=== PATIENT | male | born 1980 | race African-American/Black ===

== ENCOUNTER 2022-09-03 23:51 | Inpatient (IN) ==
[2022-09-04] MEDS ORDERED: SODIUM CHLORIDE 0.9% 1000ML 1,000 ML IV ONE ×2 (00:20→03:35)
[2022-09-04 00:53] LABS: Hematocrit (blood only) 37.4 % (42.0-52.0); Hemoglobin 12.8 g/dl (14.0-18.0); Mean Corpuscular Hemoglobin 29.6 pg (25.0-34.0); Mean Corpuscular Hgb Conc 34.2 g/dL (32.0-36.0); Mean Corpuscular Volume 86.4 fL (80.0-100.0); Mean Platelet Volume 9.7 fL (9.4-12.4); Nucleated RBC # (auto) 0.02 K/uL (0-0.12); Nucleated RBC % (auto) 1.4 %; Platelet Count 114 K/uL (130-400); RDW Coefficient of Variation 13.1 % (11.5-14.5); RDW Standard Deviation 40.9 fL (36.4-46.3); Red Blood Count 4.33 M/uL (4.70-6.10); White Blood Count 1.47 K/ul (4.8-10.8)
[2022-09-04 01:06] LABS: Alanine Aminotransferase 31 U/L (7-52); Albumin Level 3.5 gm/dl (3.4-5.0); Alkaline Phosphatase 52 U/L (34-104); Anion Gap 6 (3-11); Aspartate Aminotransferase 12 U/L (13-39); BUN Creatinine Ratio 10.6 (10-20); Bilirubin Direct 0.1 mg/dl (0-0.2); Bilirubin,Total 0.2 mg/dl (0.2-1.0); Blood Urea Nitrogen 9 mg/dl (6-23); Calcium 9.1 mg/dl (8.6-10.3); Carbon Dioxide 24 mmol/L (21-32); Chloride 105 mmol/L (98-107); Est GFR (African American) 127.2 ml/min; Est GFR (Non-African American) 109.8 ml/min; Glucose 111 mg/dl (70-99(Fasting)); Magnesium 1.5 mg/dl (1.7-2.4); Potassium 4.4 mmol/L (3.5-5.1); Sodium 135 mmol/L (136-145); Total Protein 7.2 gm/dl (6.0-8.3)
[2022-09-04 01:13] LABS: Troponin I High Sensitivity 10.3 pg/ml (0-20)
[2022-09-04] MEDS ORDERED: KETOROLAC 30 MG/ML VIAL IV ONE (01:13)
[2022-09-04] MEDS ORDERED: CIPRO 0.3%/DEXAMETHASONE 0.1% OTIC SUSP 7.5ML OT STA (01:13)
[2022-09-04] MEDS ORDERED: MAGNESIUM SULFATE / D5W 1 GM/100 ML BAG IV STA (01:25)
--- NOTE | 2022-09-04 01:28 | Emergency Department Note ---
Impression & Plan SIRS (systemic inflammatory response syndrome), Otitis externa, Acute parotitis, Neutropenia, Hypomagnesemia Admit to the [facility] ED Provider Note NAME: [id number] ATIYA AGE: 41 SEX: M ARRIVES VIA: Ambulance INFORMANT: Patient ED PROVIDER(S): Moraima Villanueva DO CHIEF COMPLAINT: Fever, right ear pain and chills PLAN: Disposition: Admit to the [facility] Condition: Guarded MEDICAL DECISION MAKING: This is a 41-year-old male patient from [facility] who presents with right ear pain, chills and fever. The patient has history of non-Hodgkin's lymphoma. Patient's symptoms started fairly suddenly around 9:30 PM this evening. Laboratory studies revealed a white count of 1.47 with an absolute neutrophil count of 1.12. Patient was also found to be hypomagnesemic. Patient received IV magnesium replacement. The source seem to be the patient's right ear. Exam was consistent with otitis externa but the pain seemed to extend anteriorly into the parotid gland. Patient was treated with IV Unasyn. CT scan revealed reactive lymphadenopathy around the parotid. There did not appear to be mastoid involvement. Patient received IV crystalloids. Both lactate and procalcitonin were normal. I discussed the case with the [place] [facility] and they will evaluate for further management. Triage Nursing notes reviewed and agree with them. External medical records reviewed from outpatient treatments. Vital Signs: reviewed and remarkable for tachycardia Differential diagnosis: Sepsis, Sirs, neutropenia, pneumonia, bacteremia, otitis externa, otitis media, mastoiditis, parotitis ER treatment provided: musician instrumental Twelve-lead EKG IV normal saline bolus IV magnesium IV Toradol IV Unasyn Ciprodex suspension eardrops IV magnesium replacement Diagnostics interpreted by me: ECG: Sinus tachycardia at a rate of [address] segment elevation or signs of ischemia Cardiac Monitoring: Sinus tachycardia at 124 Laboratory studies: See below Imaging studies: As per my independent interpretation Portable chest x-ray: No acute pulmonary infiltrates or consolidation CT scan of the soft tissue surrounding the right ear, mastoid and parotid gland: See report as per stat rad HPI: 41/M arrives for evaluation of fever, chills and right ear pain. Patient developed right ear pain and chills around 9:30 PM. Became quite weak and was noted to have a fever and tachycardia patient has a history of non-Hodgkin's lymphoma for which she receives chemotherapy every 3 weeks. PAST MEDICAL HISTORY:See Below PAST SURGICAL HISTORY:See Below FAMILY HISTORY:See Below SOCIAL H[facility] MEDICATIONS:See list ALLERGIES:None VITALS:See Below PHYSICAL EXAMINATION: HEENT: Head - normocephalic and atraumatic. Pupils are equal, round, and reactive to light. Extraocular eye muscles are intact, and sclera are anicteric. Nose - moist nasal mucosa without discharge. Mouth - moist buccal mucosa. Oropharynx is nonerythematous and there is no tonsillar exudate or edema noted. Right ear-moderate pain with any manipulation to the right pinna. The right canal was edematous. I could not see the right tympanic membrane. The left ear was normal. Neck: Supple; mild anterior cervical lymphadenopathy worse on the right than the left. Heart: Tachycardic rate and regular rhythm there is a normal S1 and S2 with no murmurs, clicks, or gallops appreciated. Lungs: Clear to auscultation bilaterally with no wheezes, rales, or rhonchi. Abdomen: Soft, completely nontender, nondistended, with good bowel sounds. There are no palpable pulsatile masses or hepatosplenomegaly. There is no guarding, rigidity, or rebound noted. Extremities: No evidence of cyanosis, clubbing, or edema. There are easily palpable peripheral pulses. Skin: warm and dry with good turgor and no rashes. ED COURSE: Times/Reassessments: 0005 the patient was evaluated in room A9. A complete history and physical was performed. A septic protocol was performed. The patient was bolused with a liter of saline. Patient was given a dose of IV Toradol for his pain. An order was placed for continuous cardiac monitoring. The patient was in a sinus tachycardia at a rate of 124. A twelve-lead EKG was obtained. A portable chest x-ray was performed. The patient went for CT scan of the face to include the right ear, parotid or mastoid. Ciprodex drops were applied to the right ear for an otitis externa. The patient was given a dose of IV Unasyn. Patient was noted to be hypomagnesemic and he was started on IV magnesium replacement. I discussed the case with the [place] [facility]ist and they will evaluate for further management. Moraima Villanueva DO Past Med/Surg History Medical History (Updated 09/04/22 @ 04:25 by Moraima Villanueva DO) Anemia Anxiety disorder, unspecified Constipation History of COVID-19 03/29/2020 History of tobacco use HTN (hypertension) Impetigo ? 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 Pneumonia due to COVID-19 virus Pulmonary embolism 03/2020 Retinal disorder Rhinitis Scabies h/o, no current infection per PA at [facility] Shortness of breath chronic per PA at [facility] Thrombocytopenia Surgical History Port-A-Cath in place (05/22/22) Insertion of Left Internal Jugular Access Port with Fluoroscopy(Left) - Tim Urban DO, FACS S/P lymph node biopsy (02/21/22) Right Axillary Lymph Node Biopsy with Frozen Section(Right) - Eben Kaufman MD, FACS Social History Smoking Status: Former smoker Tobacco Type: Cigarettes Preferred Language: [place] Communication Ability: unknown, i Controls Designer Required: No Beliefs That Will Affect Care: None Current Living Situation: Other Current Living Situation Comment: [facility]al facility Feels Safe at Home: Yes Assistive Devices: None Allergies Allergies Allergy/AdvReac Type Severity Reaction Status Date / Time No Known Allergies Allergy Verified 05/22/22 07:42 Home Meds Home Medications Medication Instructions Recorded Confirmed albuterol sulfate 90 mcg/actuation 2 puff inhalation Q6H PRN 12/04/21 05/22/22 aerosol inhaler Shortness Of Breath Or Wheezing hydroxyzine HCl 25 mg tablet 25 mg PO BID 12/04/21 05/22/22 diclofenac sodium 50 mg 50 mg PO TID 05/15/22 05/15/22 tablet,delayed release methocarbamol 750 mg tablet 750 mg PO BID 05/15/22 05/22/22 Results & Data (ED) Vital Signs Vital Signs - 24 hr 09/04/22 00:02 09/04/22 00:00 09/04/22 00:39 Temperature 37.4 C Temperature Source Oral Pulse Rate 132 H 127 H 117 H Respiratory Rate 18 25 H Respiratory Effort / Characteristics Non-Labored Spontaneous Respiratory Depth Normal Blood Pressure 132/85 153/77 H Blood Pressure Mean 100 102 Pulse Oximetry 96 96 Oxygen Delivery Method Room Air Room Air Sepsis Recent Fever Within 48 Hours Yes Sepsis New/Unexplained Change in Mental Status No Sepsis Action Taken by Nursing No Action Required 09/04/22 01:30 09/04/22 02:00 09/04/22 02:30 Temperature Temperature Source Pulse Rate 113 H 113 H 119 H Respiratory Rate 30 H 19 26 H Respiratory Effort / Characteristics Respiratory Depth Blood Pressure 145/96 H 139/82 130/85 Blood Pressure Mean 112 101 100 Pulse Oximetry 98 96 94 Oxygen Delivery Method Room Air Room Air Room Air Sepsis Recent Fever Within 48 Hours Sepsis New/Unexplained Change in Mental Status Sepsis Action Taken by Nursing Laboratory Data 09/04/22 00:36 09/04/22 00:36 Lab Results 09/04/22 09/04/22 09/04/22 Range/Units 00:36 00:36 00:36 WBC 1.47 L (4.8-10.8) K/ul RBC 4.33 L (4.70-6.10) M/uL Hgb 12.8 L (14.0-18.0) g/dl Hct 37.4 L (42.0-52.0) % MCV 86.4 (80.0-100.0) fL MCH 29.6 (25.0-34.0) pg MCHC 34.2 (32.0-36.0) g/dL RDW Std Deviation 40.9 (36.4-46.3) fL RDW Coeff of Efrain 13.1 (11.5-14.5) % Plt Count 114 L (130-400) K/uL MPV 9.7 (9.4-12.4) fL Immature Gran % (Auto) 0.7 % Neut % (Auto) 8.1 % Lymph % (Auto) 61.9 % [place] % (Auto) 25.2 % Eos % (Auto) 2.7 % Baso % (Auto) 1.4 % Neut # (Auto) 0.12 L* (1.40-6.50) K/uL Lymph # (Auto) 0.91 L (1.2-3.4) K/uL [place] # (Auto) 0.37 (0.11-0.59) K/uL Eos # (Auto) 0.04 (0-0.50) K/uL Baso # (Auto) 0.02 (0-0.2) K/uL Immature Gran # (Auto) 0.01 (0.01-0.20) K/uL Absolute Nucleated RBC 0.02 (0-0.12) K/uL Nucleated RBC % (auto) 1.4 % Sodium 135 L (136-145) mmol/L Potassium 4.4 (3.5-5.1) mmol/L Chloride 105 (98-107) mmol/L Carbon Dioxide 24 (21-32) mmol/L Anion Gap 6 (3-11) BUN 9 (6-23) mg/dl Creatinine 0.85 (0.6-1.4) mg/dl Est Cr Clr Drug Dosing Not Reportable Est GFR ( Amer) 127.2 ml/min Est GFR (Non-Af Amer) 109.8 ml/min BUN/Creatinine Ratio 10.6 (10-20) Glucose 111 H (70-99(Fasting)) mg/dl Lactate 1.1 (0.4-2.0) mmol/L Calcium 9.1 (8.6-10.3) mg/dl Magnesium 1.5 L (1.7-2.4) mg/dl Total Bilirubin 0.2 (0.2-1.0) mg/dl Direct Bilirubin 0.1 (0-0.2) mg/dl AST 12 L (13-39) U/L ALT 31 (7-52) U/L Alkaline Phosphatase 52 (34-104) U/L Troponin I High Sens 10.3 (0-20) pg/ml Total Protein 7.2 (6.0-8.3) gm/dl Albumin 3.5 (3.4-5.0) gm/dl Procalcitonin (0-0.5) ng/ml SARS-CoV-2 (PCR) (Negative) 09/04/22 09/04/22 Range/Units 00:36 01:17 WBC (4.8-10.8) K/ul RBC (4.70-6.10) M/uL Hgb (14.0-18.0) g/dl Hct (42.0-52.0) % MCV (80.0-100.0) fL MCH (25.0-34.0) pg MCHC (32.0-36.0) g/dL RDW Std Deviation (36.4-46.3) fL RDW Coeff of Efrain (11.5-14.5) % Plt Count (130-400) K/uL MPV (9.4-12.4) fL Immature Gran % (Auto) % Neut % (Auto) % Lymph % (Auto) % [place] % (Auto) % Eos % (Auto) % Baso % (Auto) % Neut # (Auto) (1.40-6.50) K/uL Lymph # (Auto) (1.2-3.4) K/uL [place] # (Auto) (0.11-0.59) K/uL Eos # (Auto) (0-0.50) K/uL Baso # (Auto) (0-0.2) K/uL Immature Gran # (Auto) (0.01-0.20) K/uL Absolute Nucleated RBC (0-0.12) K/uL Nucleated RBC % (auto) % Sodium (136-145) mmol/L Potassium (3.5-5.1) mmol/L Chloride (98-107) mmol/L Carbon Dioxide (21-32) mmol/L Anion Gap (3-11) BUN (6-23) mg/dl Creatinine (0.6-1.4) mg/dl Est Cr Clr Drug Dosing Est GFR ( Amer) ml/min Est GFR (Non-Af Amer) ml/min BUN/Creatinine Ratio (10-20) Glucose (70-99(Fasting)) mg/dl Lactate (0.4-2.0) mmol/L Calcium (8.6-10.3) mg/dl Magnesium (1.7-2.4) mg/dl Total Bilirubin (0.2-1.0) mg/dl Direct Bilirubin (0-0.2) mg/dl AST (13-39) U/L ALT (7-52) U/L Alkaline Phosphatase (34-104) U/L Troponin I High Sens (0-20) pg/ml Total Protein (6.0-8.3) gm/dl Albumin (3.4-5.0) gm/dl Procalcitonin < 0.05 (0-0.5) ng/ml SARS-CoV-2 (PCR) NEGATIVE (Negative) Administered Medications Discontinued Medications Ciprofloxacin/Dexamethasone (Cipro 0.3%/Dexamethasone 0.1% Otic Susp 7.5ml) 4 drops OT NOW STA Stop: 09/04/22 01:14 Last Admin: 09/04/22 01:31 Dose: 4 drops Documented By: MICHELLE Sodium Chloride (Nss 1000ml) 1,000 mls @ 999 mls/hr IV .Q1H1M ONE Stop: 09/04/22 01:20 Last Infusion: 09/04/22 01:56 Dose: 0 mls/hr Documented By: Admin: 09/04/22 00:55 Dose: 999 mls/hr Documented By: MICHELLE Magnesium Sulfate/Dextrose (Magnesium Sulfate / D5w) 1 gm in 100 mls @ 100 mls/hr IV NOW STA Stop: 09/04/22 02:24 Last Infusion: 09/04/22 02:54 Dose: 0 mls/hr Documented By: Admin: 09/04/22 01:54 Dose: 100 mls/hr Documented By: MICHELLE Ampicillin Sodium/Sulbactam Sodium 3,000 mg/ Sodium Chloride 108 mls @ 200 mls/hr IV NOW STA; Protocol Stop: 09/04/22 02:18 Last Infusion: 09/04/22 03:54 Dose: 0 mls/hr Documented By: Admin: 09/04/22 03:21 Dose: 200 mls/hr Documented By: MICHELLE Ioversol (Optiray 320 500ml) 100 ml IV ONCE ONE Stop: 09/04/22 02:22 Last Admin: 09/04/22 02:21 Dose: 90 ml Documented By: LEA Ketorolac Tromethamine (Ketorolac 30 Mg/Ml Vial) 30 mg IV NOW ONE Stop: 09/04/22 01:14 Last Admin: 09/04/22 01:30 Dose: 30 mg Documented By: MICHELLE Imaging Data Radiologist's Impression: Face CT 09/04/22 01:42 Exam(s): CT FACIAL With Contrast IV Amt: 90 ML OPTIRAY 320 EXAM: CT Maxillofacial With Intravenous Contrast CLINICAL HISTORY: Reason for exam: eval right ear and right parotid/mastoid. TECHNIQUE: Axial computed tomography images of the face with intravenous contrast. CTDI is 14.45 mGy and DLP is 319.09 mGy-cm. Automated exposure control was utilized for the study. A dose lowering technique was utilized adhering to the principles of ALARA. CONTRAST: Patient received 90 ML OPTIRAY 320 of IV contrast COMPARISON: No relevant prior studies available. FINDINGS: Bones/joints: No acute fracture. Soft tissues: Unremarkable. Lymph nodes: There are a few enlarged lymph nodes in the right cervical chain as well as within the right parotid gland (image 198 series 3). No focal fluid collection or definite mass is seen. Orbits: Unremarkable. Sinuses: Unremarkable. No air-fluid levels. IMPRESSION: Right cervical/parotid lymphadenopathy which could be reactive. Electronically signed by: Yuri Dickens MD 09/04/22 02:37 AM Discharge Plan Visit Data Chief Complaint: Illness Stated Complaint: Fever, Weakness, Tachycardia ED Provider: Moraima Villanueva Discharge Problem: SIRS (systemic inflammatory response syndrome), Otitis externa, Acute parotitis, Neutropenia, Hypomagnesemia Patient Disposition: Admitted As Inpatient Forms Stand Alone Forms: [facility]ly [facility], [facility] Prescriptions Prescriptions: No Action hydroxyzine HCl 25 mg tablet 25 mg PO BID albuterol sulfate 90 mcg/actuation HFA aerosol inhaler 2 puff inhalation Q6H PRN (Reason: Shortness Of Breath Or Wheezing) methocarbamol 750 mg Tablet 750 mg PO BID diclofenac sodium 50 mg Tablet,Delayed Release (Dr/Ec) 50 mg PO TID Referrals Referrals: [facility] [Primary Care Provider] -
[2022-09-04 01:36] LABS: Basophils # (auto) 0.02 K/uL (0-0.2); Basophils % (auto) 1.4 %; Eosinophils # (auto) 0.04 K/uL (0-0.50); Eosinophils % (auto) 2.7 %; Immature Granulocytes # (auto) 0.01 K/uL (0.01-0.20); Immature Granulocytes % (auto) 0.7 %; Lymphocytes # (auto) 0.91 K/uL (1.2-3.4); Lymphocytes % (auto) 61.9 %; Monocytes # (auto) 0.37 K/uL (0.11-0.59); Monocytes % (auto) 25.2 %; Neutrophils # (auto) 0.12 K/uL (1.40-6.50); Neutrophils % (auto) 8.1 %
[2022-09-04] MEDS ORDERED: AMPICILLIN/SULBACTAM SOD 3,000 MG in 0.9 % SODIUM CHLORIDE 100 ML IV STA (01:46)
[2022-09-04] MEDS ORDERED: OPTIRAY 320 500ml IV ONE (02:21)
--- NOTE | 2022-09-04 02:38 | CT Scan Report ---
Exam(s): CT FACIAL With Contrast IV Amt: 90 ML OPTIRAY 320 EXAM: CT Maxillofacial With Intravenous Contrast CLINICAL HISTORY: Reason for exam: eval right ear and right parotid/mastoid. TECHNIQUE: Axial computed tomography images of the face with intravenous contrast. CTDI is 14.45 mGy and DLP is 319.09 mGy-cm. Automated exposure control was utilized for the study. A dose lowering technique was utilized adhering to the principles of ALARA. CONTRAST: Patient received 90 ML OPTIRAY 320 of IV contrast COMPARISON: No relevant prior studies available. FINDINGS: Bones/joints: No acute fracture. Soft tissues: Unremarkable. Lymph nodes: There are a few enlarged lymph nodes in the right cervical chain as well as within the right parotid gland (image 198 series 3). No focal fluid collection or definite mass is seen. Orbits: Unremarkable. Sinuses: Unremarkable. No air-fluid levels. IMPRESSION: Right cervical/parotid lymphadenopathy which could be reactive. Electronically signed by: Yuri Dickens MD 09/04/22 02:37 AM
[2022-09-04] MEDS ORDERED: SODIUM CHLORIDE 0.9% 500 ML IV SCH (03:15)
--- NOTE | 2022-09-04 03:22 | History & Physical Report ---
Date of Service September 04, 2022 Assessment & Plan (1) Neutropenic fever: Plan: Fever at correctional facility to 100.7 per patient report; noted to be leukopenic/neutropenic with sinus tachycardia on admission, no longer febrile here BCx collected prior to receiving Unasyn CXR without evidence of pneumonia, no supplemental oxygen needs UA ordered, not yet collected at time of admission Does have right otitis externa on exam, however, given robust systemic response and immunocompromised status will cover with broad spectrum Abx at this time vanc/Zosyn (2) Sepsis: Plan: Tachycardia and leukopenia/neutropenia in immunocompromised patient, also with reported Hx of fever a few hours prior to arrival to ER Lactate 1.1 on admission Does have right otitis externa Given neutropenic status will cover empirically with vanc/Zosyn while awaiting BCx as this is relatively significant response for otitis externa alone Received 1L NSS in ER, will give another 1L NSS then resume 125cc/hr maintenance rate Med/Tele given sinus tachycardia, improved since ER arrival however not resolved at time of admission (3) Otitis externa: Plan: Right otitis externa, continue Ciprodex drops (4) Non-Hodgkin lymphoma: Plan: Undergoing active chemotherapy, follows with Dr. Taylor With neutropenia on admission, not unexpected given chemo Isolation precautions (5) Anxiety disorder, unspecified: Plan: Continue hydroxyzine medication Plan Empiric Abx, BCx monitoring, treatment of otitis externa History of Present Illness Chief Complaint: Right ear pain, fever at correctional facility Primary Care Provider: BAKARI Noble 41-year-old male past medical history significant for T-cell lymphoma undergoing current chemotherapy, anxiety presented to the ER from correctional facility for 1 day of fever and right ear pain. In the ER patient initially noted to have a heart rate in the 140s, sinus tachycardia, improved with IV fluids and pain medication. Lab studies notable for WBC count of 1.47 with a neutrophil count of 0.12, magnesium 1.5, negative procalcitonin, COVID-[address] of the face revealed right cervical/parotid lymphadenopathy, possibly reactive. No focal fluid collections or definitive masses noted. ER provider noted otitis externa on exam, given Unasyn and Ciprodex drops. Blood cultures were collected prior to antibiotics. Hospitalist service was consulted for admission for sepsis in immunocompromised patient. Patient denies chest pain, SOB, nausea, vomiting, abdominal pain, new wounds or injuries. Allergies Allergy/AdvReac Type Severity Reaction Status Date / Time No Known Allergies Allergy Verified 05/22/22 07:42 Home Medications Medication Instructions Recorded Confirmed Type albuterol sulfate 90 mcg/actuation 2 puff inhalation Q6H PRN 12/04/21 05/22/22 History aerosol inhaler Shortness Of Breath Or Wheezing hydroxyzine HCl 25 mg tablet 25 mg PO BID 12/04/21 05/22/22 History diclofenac sodium 50 mg 50 mg PO TID 05/15/22 05/15/22 History tablet,delayed release methocarbamol 750 mg tablet 750 mg PO BID 05/15/22 05/22/22 History Past Med/Surg History Medical History (Updated 09/04/22 @ 03:29 by Milly Solares DO) Anemia Anxiety disorder, unspecified Constipation History of COVID-19 03/29/2020 History of tobacco use HTN (hypertension) Impetigo ? 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 Pneumonia due to COVID-19 virus Pulmonary embolism 03/2020 Retinal disorder Rhinitis Scabies h/o, no current infection per PA at [facility] Shortness of breath chronic per PA at [facility] Thrombocytopenia Surgical History Port-A-Cath in place (05/22/22) Insertion of Left Internal Jugular Access Port with Fluoroscopy(Left) - Tim Urban DO, FACS S/P lymph node biopsy (02/21/22) Right Axillary Lymph Node Biopsy with Frozen Section(Right) - Eben Kaufman MD, FACS Social History Smoking Status: Former smoker Tobacco Type: Cigarettes Preferred Language: Mohawk Communication Ability: unknown, i Assistant Professor Sculpture Required: No Beliefs That Will Affect Care: None Current Living Situation: Other Current Living Situation Comment: Correctional facility Feels Safe at Home: Yes Assistive Devices: None Review of Systems Review of Systems: All systems reviewed & are unremarkable except as noted in Subjective Physical Exam Constitutional: WD/WN, vitals as above Respiratory: normal respiratory effort, lungs clear to auscultation Cardiovascular: RRR, no murmur, no edema Gastrointestinal (Abdomen): normal bowel sounds, soft, nontender, no hepatosplenomegaly Skin: no rashes, warm and dry Psychiatric: A+Ox3, euthymic affect Results & Data Results & Data Vital Signs (Past 12 Hours) Vital Signs Temp Pulse Resp BP Pulse Ox O2 Del Method 09/04/22 02:30 119 H 26 H 130/85 94 Room Air 09/04/22 02:00 113 H 19 139/82 96 Room Air 09/04/22 01:30 113 H 30 H 145/96 H 98 Room Air 09/04/22 00:39 117 H 25 H 153/77 H 96 Room Air 09/04/22 00:00 127 H 09/04/22 00:02 37.4 C 132 H 18 132/85 96 Room Air PG Care Time/CCT Total # of Minutes Spent Total Time Spent with Patient: Total time spent is greater than 50% in coordination of care (as documented) at patient's floor/unit and/or counseling patient: Coding Level of Care Code 02937 INT INP/OBS CARE 3/75MIN Diagnoses Neutropenic fever D70.9; R50.81 Sepsis A41.9 Otitis externa H60.90 Non-Hodgkin lymphoma C85.90 Anxiety disorder, unspecified F41.9
[2022-09-04] MEDS ORDERED: ALBUTEROL HFA 8 GM INHALER INH PRN (04:33)
[2022-09-04] MEDS ORDERED: ACETAMINOPHEN 325 MG TAB PO PRN (04:33)
[2022-09-04] MEDS ORDERED: ONDANSETRON INJ 2 MG/ML 2 ML VIAL IV PRN (04:33)
[2022-09-04] MEDS ORDERED: VANCOMYCIN CONSULT ACTIVE PRN (04:33)
[2022-09-04] MEDS ORDERED: VANCOMYCIN HCL 2,000 MG in SODIUM CHLORIDE 0.9% 500 ML IV ONE (04:33)
[2022-09-04] MEDS ORDERED: POLYETHYLENE (MIRALAX) 17 GM PACK PO PRN (04:33)
[2022-09-04] MEDS ORDERED: PIPERACILLIN/TAZOBACTAM 4.5 GM in DEXTROSE 5% 100 ML IV ONE (04:45)
[2022-09-04 05:44] LABS: Appearance Urine Clear (Clear); Bacteria Urine Automated Negative (Negative); Bilirubin Urine Negative (Negative); Blood Urine Negative (Negative); Color Urine Yellow; Glucose Urine UA Negative (Negative); Ketones Urine Negative (Negative); Leukocyte Esterase Urine Negative (Negative); Nitrite Urine Negative (Negative); RBC Urine Automated 0-4 /hpf (0-4); Specific Gravity Urine > 1.045 (1.000-1.030); Urobilinogen Urine Negative (Negative); pH Urine 8.5 (4.5-7.5)
[2022-09-04 05:57] LABS: Protein Urine Trace (Negative)
[2022-09-04] MEDS: SODIUM CHLORIDE 0.9% 1000ML 1,000 ML IV SCH ×2 (06:03→13:58)
--- NOTE | 2022-09-04 06:59 | XRay Report ---
XR chest 1V portable HISTORY: 41 years-old Male Sepsis acute sepsis COMPARISON: 05/22/2022 TECHNIQUE: AP view of the chest FINDINGS: Left pectoral acute port catheter appears unchanged. Cardiac silhouette is normal in size. No pneumot horax, pleural effusion or overt pulmonary edema. Mild subsegmental bibasilar atelectasis. Bones appe ar grossly intact. IMPRESSION: No acute process. ACT 112: Negative or not required by law. The above report was generated using voice recognition software. It may contain grammatical, syntax o r spelling errors. Electronically signed by: Hima Sesay M.D. 09/04/2022 6:58 AM
--- NOTE | 2022-09-04 07:44 | Hospitalist Progress Note ---
Date of Service September 04, 2022 Assessment & Plan (1) Neutropenic fever: Plan: [facility] 100.7 per patient report; noted to be leukopenic/neutropenic with sinus tachycardia on admission, no longer febrile here CXR w/o pneumonia UA not suggestive of infection, noting likely dehydration CT facial w/ Right cervical/parotid lymphadenopathy which could be reactive. Right otitis externa on exam, however, given robust systemic response and immunocompromised status will cover with broad spectrum Abx at this time vanc/Zosyn (given Unasyn in ER) Blood cultures obtained on admission -- ngtd, monitor in f/u Improving on exam/clinically. Labs stable. Remains afebrile at present Pain control -- added toradol 15mg q6h x 4 doses and monitor Tylenol available as needed pain/fever Pepcid IVP daily added Dr Taylor consulted for tomorrow while inpatient-- discussed today. Vitals appear stable/no need for myeloid growth factors at present if unstable, but sounds like will not be necessary. Neutropenic precautions in place Labs in AM (2) Sepsis: Plan: Tachycardia and leukopenia/neutropenia in immunocompromised patient, also with reported Hx of fever a few hours prior to arrival to ER Lactate 1.1 on admission Does have right otitis externa Given neutropenic status will cover empirically with vanc/Zosyn while awaiting BCx as this is relatively significant response for otitis externa alone Received 1L NSS in ER, will give another 1L NSS then resume 125cc/hr maintenance rate Med/Tele given sinus tachycardia, improved since ER arrival however not resolved at time of admission Will time out for 2L (tomorrow AM 09/05), improvement in PO intake (3) Otitis externa: Plan: Right otitis externa, continue Ciprodex drops Pain control (4) Non-Hodgkin lymphoma: Plan: Undergoing active chemotherapy, follows with Dr. Taylor *Chemotherapy induced pancytopenia With neutropenia on admission, not unexpected given chemo Isolation precautions consult placed for am as discussed w/ Dr Taylor (5) Anxiety disorder, unspecified: Plan: Continue hydroxyzine medication (6) SIRS (systemic inflammatory response syndrome): Plan: as above, abx/IVF (7) Neutropenia: Plan: chemotherapy induced, follows w/ dr Taylor -- consultation for AM As above Plan Empiric Abx, BCx monitoring, treatment of otitis externa Admission and Anticipated Discharge Date Admission Date: September 04, 2022 Supervising Physician Co-Signing Physician Notes The patient was not seen by me. The chart was reviewed. Case discussed with KIRSTEN Ivan. Agree with assessment and plan Subjective ADMITTED AFTER MIDNIGHT: BRIDGE NOTE Eval after lunch, doing alright, feeling better than admission. Pain creeping back up to his right ear -- not sure what he got on admission but it was effective -- discussed will review and order additional as needed. Passing gas but no BM -- uses "little red pill" when having issues -- discussed will order senna. Also encouraged guards to get up/ambulating. HRs improving, septic on admission. Dx w/ lymphoma last winter. recent chemo last week, expected neuropenic from such. Discussed I did reach out to Dr Taylor and he will see him in the morning as well while inpatient. No chest pain, but some reflux type symptoms. Will add pepcid and monitor response. Questions/concerns addressed at this time. Physical Exam Physical Exam: General: WD/WN male resting in bed, guards at bedside, NAD HEENT: head normocephalic, thick neck, +RIGHT ear tenderness to palpation to tragus/pinna, no surrounding erythema/drainage, trachea midline, +lymphadenopathy Resp: CTA, diminished in bases, no w/c, on room air CV: RRR, no significant mrg, no pitting edema GI: +BS, slight distention, nontender : no pa MSK/Neuro: no focal deficit, no slurred speech/facial droop Results & Data Results & Data Vital Signs (Past 12 Hours) Vital Signs Temp Pulse Resp BP BP Pulse Ox O2 Del Method 09/04/22 05:44 37 C 18 118/73 96 Room Air 09/04/22 05:43 104 H 09/04/22 04:00 100 H 22 132/82 95 Room Air 09/04/22 03:30 108 H 27 H 141/90 H 96 Room Air 09/04/22 03:00 113 H 26 H 130/89 95 Room Air 09/04/22 02:30 119 H 26 H 130/85 94 Room Air 09/04/22 02:00 113 H 19 139/82 96 Room Air 09/04/22 01:30 113 H 30 H 145/96 H 98 Room Air 09/04/22 00:39 117 H 25 H 153/77 H 96 Room Air 09/04/22 00:00 127 H 09/04/22 00:02 37.4 C 132 H 18 132/85 96 Room Air Laboratory Results 09/04/22 09/04/22 09/04/22 Range/Units Unknown 01:17 00:36 WBC (4.8-10.8) K/ul RBC (4.70-6.10) M/uL Hgb (14.0-18.0) g/dl Hct (42.0-52.0) % MCV (80.0-100.0) fL MCH (25.0-34.0) pg MCHC (32.0-36.0) g/dL RDW Std Deviation (36.4-46.3) fL RDW Coeff of Efrain (11.5-14.5) % Plt Count (130-400) K/uL MPV (9.4-12.4) fL Immature Gran % (Auto) % Neut % (Auto) % Lymph % (Auto) % [place] % (Auto) % Eos % (Auto) % Baso % (Auto) % Neut # (Auto) (1.40-6.50) K/uL Lymph # (Auto) (1.2-3.4) K/uL [place] # (Auto) (0.11-0.59) K/uL Eos # (Auto) (0-0.50) K/uL Baso # (Auto) (0-0.2) K/uL Immature Gran # (Auto) (0.01-0.20) K/uL Absolute Nucleated RBC (0-0.12) K/uL Nucleated RBC % (auto) % Sodium (136-145) mmol/L Potassium (3.5-5.1) mmol/L Chloride (98-107) mmol/L Carbon Dioxide (21-32) mmol/L Anion Gap (3-11) BUN (6-23) mg/dl Creatinine (0.6-1.4) mg/dl Est Cr Clr Drug Dosing Est GFR ( Amer) ml/min Est GFR (Non-Af Amer) ml/min BUN/Creatinine Ratio (10-20) Glucose (70-99(Fasting)) mg/dl Lactate (0.4-2.0) mmol/L Calcium (8.6-10.3) mg/dl Magnesium (1.7-2.4) mg/dl Total Bilirubin (0.2-1.0) mg/dl Direct Bilirubin (0-0.2) mg/dl AST (13-39) U/L ALT (7-52) U/L Alkaline Phosphatase (34-104) U/L Troponin I High Sens (0-20) pg/ml Total Protein (6.0-8.3) gm/dl Albumin (3.4-5.0) gm/dl Procalcitonin < 0.05 (0-0.5) ng/ml Urine Color Yellow Urine Appearance Clear (Clear) Urine pH 8.5 H (4.5-7.5) Ur Specific Dickey > 1.045 H (1.000-1.030) Urine Protein Trace H (Negative) Urine Glucose (UA) Negative (Negative) Urine Ketones Negative (Negative) Urine Blood Negative (Negative) Urine Nitrite Negative (Negative) Urine Bilirubin Negative (Negative) Urine Urobilinogen Negative (Negative) Ur Leukocyte Esterase Negative (Negative) Urine WBC (Auto) 1-5 (0-5) /hpf Urine RBC (Auto) 0-4 (0-4) /hpf U Hyaline Cast (Auto) 1-5 (0-5) /lpf U Epithel Cells (Auto) 10-20 H (0-5) /lpf Urine Bacteria (Auto) Negative (Negative) SARS-CoV-2 (PCR) NEGATIVE (Negative) 09/04/22 09/04/22 09/04/22 Range/Units 00:36 00:36 00:36 WBC 1.47 L (4.8-10.8) K/ul RBC 4.33 L (4.70-6.10) M/uL Hgb 12.8 L (14.0-18.0) g/dl Hct 37.4 L (42.0-52.0) % MCV 86.4 (80.0-100.0) fL MCH 29.6 (25.0-34.0) pg MCHC 34.2 (32.0-36.0) g/dL RDW Std Deviation 40.9 (36.4-46.3) fL RDW Coeff of Efrain 13.1 (11.5-14.5) % Plt Count 114 L (130-400) K/uL MPV 9.7 (9.4-12.4) fL Immature Gran % (Auto) 0.7 % Neut % (Auto) 8.1 % Lymph % (Auto) 61.9 % [place] % (Auto) 25.2 % Eos % (Auto) 2.7 % Baso % (Auto) 1.4 % Neut # (Auto) 0.12 L* (1.40-6.50) K/uL Lymph # (Auto) 0.91 L (1.2-3.4) K/uL [place] # (Auto) 0.37 (0.11-0.59) K/uL Eos # (Auto) 0.04 (0-0.50) K/uL Baso # (Auto) 0.02 (0-0.2) K/uL Immature Gran # (Auto) 0.01 (0.01-0.20) K/uL Absolute Nucleated RBC 0.02 (0-0.12) K/uL Nucleated RBC % (auto) 1.4 % Sodium 135 L (136-145) mmol/L Potassium 4.4 (3.5-5.1) mmol/L Chloride 105 (98-107) mmol/L Carbon Dioxide 24 (21-32) mmol/L Anion Gap 6 (3-11) BUN 9 (6-23) mg/dl Creatinine 0.85 (0.6-1.4) mg/dl Est Cr Clr Drug Dosing Not Reportable Est GFR ( Amer) 127.2 ml/min Est GFR (Non-Af Amer) 109.8 ml/min BUN/Creatinine Ratio 10.6 (10-20) Glucose 111 H (70-99(Fasting)) mg/dl Lactate 1.1 (0.4-2.0) mmol/L Calcium 9.1 (8.6-10.3) mg/dl Magnesium 1.5 L (1.7-2.4) mg/dl Total Bilirubin 0.2 (0.2-1.0) mg/dl Direct Bilirubin 0.1 (0-0.2) mg/dl AST 12 L (13-39) U/L ALT 31 (7-52) U/L Alkaline Phosphatase 52 (34-104) U/L Troponin I High Sens 10.3 (0-20) pg/ml Total Protein 7.2 (6.0-8.3) gm/dl Albumin 3.5 (3.4-5.0) gm/dl Procalcitonin (0-0.5) ng/ml Urine Color Urine Appearance (Clear) Urine pH (4.5-7.5) Ur Specific Dickey (1.000-1.030) Urine Protein (Negative) Urine Glucose (UA) (Negative) Urine Ketones (Negative) Urine Blood (Negative) Urine Nitrite (Negative) Urine Bilirubin (Negative) Urine Urobilinogen (Negative) Ur Leukocyte Esterase (Negative) Urine WBC (Auto) (0-5) /hpf Urine RBC (Auto) (0-4) /hpf U Hyaline Cast (Auto) (0-5) /lpf U Epithel Cells (Auto) (0-5) /lpf Urine Bacteria (Auto) (Negative) SARS-CoV-2 (PCR) (Negative) Diagnostic Findings Chest X-Ray 09/04/22 00:08 XR chest 1V portable HISTORY: 41 years-old Male Sepsis acute sepsis COMPARISON: 05/22/2022 TECHNIQUE: AP view of the chest FINDINGS: Left pectoral acute port catheter appears unchanged. Cardiac silhouette is normal in size. No pneumothorax, pleural effusion or overt pulmonary edema. Mild subsegmental bibasilar atelectasis. Bones appear grossly intact. IMPRESSION: No acute process. ACT 112: Negative or not required by law. The above report was generated using voice recognition software. It may contain grammatical, syntax or spelling errors. Electronically signed by: Hima Sesay M.D. 09/04/2022 6:[address] 09/04/22 01:42 Exam(s): CT FACIAL With Contrast IV Amt: 90 ML OPTIRAY 320 EXAM: CT Maxillofacial With Intravenous Contrast CLINICAL HISTORY: Reason for exam: eval right ear and right parotid/mastoid. TECHNIQUE: Axial computed tomography images of the face with intravenous contrast. CTDI is 14.45 mGy and DLP is 319.09 mGy-cm. Automated exposure control was utilized for the study. A dose lowering technique was utilized adhering to the principles of ALARA. CONTRAST: Patient received 90 ML OPTIRAY 320 of IV contrast COMPARISON: No relevant prior studies available. FINDINGS: Bones/joints: No acute fracture. Soft tissues: Unremarkable. Lymph nodes: There are a few enlarged lymph nodes in the right cervical chain as well as within the right parotid gland (image 198 series 3). No focal fluid collection or definite mass is seen. Orbits: Unremarkable. Sinuses: Unremarkable. No air-fluid levels. IMPRESSION: Right cervical/parotid lymphadenopathy which could be reactive. Electronically signed by: Yuri Dickens MD 09/04/22 02:37 AM PG Care Time/CCT Total # of Minutes Spent Total Time Spent with Patient: Total time spent is greater than 50% in coordination of care (as documented) at patient's floor/unit and/or counseling patient: Coding Level of Care Code None Diagnoses Neutropenic fever D70.9; R50.81 Sepsis A41.9 Otitis externa H60.90 Non-Hodgkin lymphoma C85.90 Anxiety disorder, unspecified F41.9 SIRS (systemic inflammatory response syndrome) R65.10 Neutropenia D70.1; T45.1X5A Neutropenia type: secondary to cancer chemotherapy (7) Neutropenia Neutropenia type: secondary to cancer chemotherapy Qualified Code(s): D70.1 - Agranulocytosis secondary to cancer chemotherapy; T45.1X5A - Adverse effect of antineoplastic and immunosuppressive drugs, initial encounter
[2022-09-04] MEDS: hydrOXYzine HCl 25 MG TAB PO SCH ×2 (08:22→22:27)
[2022-09-04] MEDS: CIPRO 0.3%/DEXAMETHASONE 0.1% OTIC SUSP 7.5ML OTR SCH ×2 (08:22→22:27)
[2022-09-04] MEDS: HEPARIN SOD 5,000 UNIT/0.5 ML VIAL SQ SCH ×2 (08:23→22:27)
[2022-09-04] MEDS: MAGNESIUM SULFATE / D5W 1 GM/100 ML BAG IV SCH ×2 (08:23→10:46)
--- NOTE | 2022-09-04 09:08 | Pharmacy Report ---
Pharmacy PK ABX Note - Date of Service September 04, 2022 - Assessment and Plan Assessment 41 year old M, with NHL, A-port, receiving IV Vancomycin + Zosyn for treatment of sepsis, neutropenic fever. [facility] 100.7 at [facility], no longer febrile here. WBC 1.47. Blood cultures pending. CXR without evidence of pneumonia, no supplemental oxygen needs. UA ordered, not yet collected. Otitis externa on exam, however, given robust systemic response and immunocompromised status covering with broad spectrum antibiotics empirically. Plan Vancomycin * Loading dose: 2000 mg IV x 1 * Maintenance dose: 1250 mg IV every 12 hours * Regimen is predicted to achieve target AUC/KENN of 400-600 mg/L.hr * Random level ordered for: 09/05/22 Pharmacy will continue to follow and will adjust dose/frequency as necessary. Thank you. Pharmacy has transitioned to AUC monitoring for vancomycin. AUC/KENN is the preferred PK/PD target and is associated with decreased risk of nephrotoxicity compared to traditional trough targets.
[2022-09-04] MEDS: PIPERACILLIN/TAZOBACTAM 4.5 GM in DEXTROSE 5% 100 ML IV SCH ×2 (10:46→18:09)
[2022-09-04] MEDS: VANCOMYCIN HCL 1,250 MG in SODIUM CHLORIDE 0.9% 250 ML IV SCH (12:08)
--- NOTE | 2022-09-04 12:33 | Electrocardiogram Report ---
Test Reason : Blood Pressure : / mmHG Vent. Rate : 127 BPM Atrial Rate : 127 BPM P-R Int : 130 ms QRS Dur : 078 ms QT Int : 300 ms P-R-T Axes : 021 058 -17 degrees QTc Int : 436 ms Sinus tachycardia T wave abnormality, consider inferior ischemia Abnormal ECG When compared with ECG of 17-MAY-2020 18:25, Vent. rate has increased BY 52 BPM Confirmed by Arnol Krishnan ([id number]) on 09/04/2022 12:32:31 PM Referred By: [facility] Confirmed By:Luis Eduardo Krishnan
[2022-09-04] MEDS: KETOROLAC TROMETHAMINE 15 MG/ML VIAL IV PRN ×2 (13:59→22:37)
[2022-09-04] MEDS: DOCUSATE SODIUM/SENNA 50/8.6MG TAB PO SCH (14:05)
[2022-09-04] MEDS: FAMOTIDINE 20 MG in SYRINGE 3 ML IV SCH (14:05)
[2022-09-05] MEDS: VANCOMYCIN HCL 1,250 MG in SODIUM CHLORIDE 0.9% 250 ML IV SCH (00:22)
[2022-09-05] MEDS: PIPERACILLIN/TAZOBACTAM 4.5 GM in DEXTROSE 5% 100 ML IV SCH ×3 (01:45→18:26)
[2022-09-05 06:59] LABS: Hematocrit (blood only) 33.2 % (42.0-52.0); Hemoglobin 11.3 g/dl (14.0-18.0); Mean Corpuscular Hemoglobin 29.5 pg (25.0-34.0); Mean Corpuscular Volume 86.7 fL (80.0-100.0); Mean Platelet Volume 9.9 fL (9.4-12.4); Platelet Count 156 K/uL (130-400); RDW Coefficient of Variation 13.3 % (11.5-14.5); Red Blood Count 3.83 M/uL (4.70-6.10); White Blood Count 2.37 K/ul (4.8-10.8)
[2022-09-05 07:08] LABS: BUN Creatinine Ratio 6.9 (10-20); Calcium 8.6 mg/dl (8.6-10.3); Est GFR (Non-African American) 108.7 ml/min; Magnesium 1.9 mg/dl (1.7-2.4); Potassium 4.2 mmol/L (3.5-5.1)
[2022-09-05 07:29] LABS: RBC Morphology Unremarkable
[2022-09-05 07:34] LABS: Basophils # (auto) 0.01 K/uL (0-0.2); Basophils % (auto) 0.4 %; Eosinophils # (auto) 0.05 K/uL (0-0.50); Eosinophils % (auto) 2.1 %; Immature Granulocytes # (auto) 0.01 K/uL (0.01-0.20); Immature Granulocytes % (auto) 0.4 %; Lymphocytes # (auto) 1.02 K/uL (1.2-3.4); Monocytes # (auto) 0.87 K/uL (0.11-0.59); Monocytes % (auto) 36.7 %; Neutrophils # (auto) 0.41 K/uL (1.40-6.50); Neutrophils % (auto) 17.4 %
--- NOTE | 2022-09-05 07:36 | Hospitalist Progress Note ---
Date of Service September 05, 2022 Assessment & Plan (1) Neutropenic fever: Plan: Fever at [facility] to 100.7 per patient report; noted to be leukopenic/neutropenic with sinus tachycardia on admission, no longer febrile here CXR w/o pneumonia UA not suggestive of infection, noting likely dehydration CT facial w/ Right cervical/parotid lymphadenopathy which could be reactive. Right otitis externa on exam, however, given robust systemic response and immunocompromised status will cover with broad spectrum Abx at this time vanc/Zosyn (given Unasyn in ER) Blood cultures obtained on admission -- ngtd, monitor in f/u Neutropenic precautions in place Improving on exam/clinically. Labs stable. Remains afebrile at present (low grade temp 37.6C noted) Pain control -- added toradol 15mg q6h x 4 doses (has received total 2 doses, plts improved on repeat labs) Tylenol available as needed pain/fever Pepcid daily ordered-- converted to PO for tomorrow BCx remain NGTD Vanco trough not therapeutic, pharmacy adjusting Continues on IV abx for now and waiting until blood cultures ngtd 48 hours and if stable on exam/labs in morning can consider dc on PO abx/ear drops and pain control with outpatient follow up. Monitor labs/exam on repeat but patient also hopeful for dc tomorrow if stable. Discussed plan w/ heme/onc and agreed - they will see him this afternoon (2) Sepsis: Plan: Tachycardia and leukopenia/neutropenia in immunocompromised patient, also with reported Hx of fever a few hours prior to arrival to ER Lactate 1.1 on admission Right otitis externa on exam Given neutropenic status, covering with vanc/Zosyn while awaiting BCx as this is relatively significant response for otitis externa alone Given 2L on admission, continued additional 2L overnight timed out this morning. HRs improved and stable in the 80-90s Encourage PO fluid intake Not signifiantly dehydrated on exam (3) Otitis externa: Plan: Right otitis externa, continue Ciprodex drops Pain control - continue PO option at d/c (4) Non-Hodgkin lymphoma: Plan: Undergoing active chemotherapy, follows with Dr. Taylro *Chemotherapy induced pancytopenia With neutropenia on admission, not unexpected given chemo Isolation precautions Dr Taylor consulted while inpatient-- discussed today. Vitals appear stable/no need for myeloid growth factors at present if unstable, but sounds like will not be necessary. Labs currently stable and monitoring (5) Anxiety disorder, unspecified: Plan: Continue hydroxyzine (6) SIRS (systemic inflammatory response syndrome): Plan: as above, abx/IVF (7) Neutropenia: Plan: chemotherapy induced, follows w/ dr Taylor -- consultation placed as above neutropenic precautions in place tx as outlined above Plan monitoring overnight on IV abx If stable/continued improvement on exam/pain control/HRs planning for discharge tomorrow 09/06 Admission and Anticipated Discharge Date Admission Date: September 04, 2022 Supervising Physician Co-Signing Physician Notes The patient was not seen by me. The chart was reviewed. Case discussed with KIRSTEN Ivan. Agree with assessment and plan Subjective evaluated this afternoon, doing well. pain much improved. labs stable. HRs improved and staying in 80-100s. low grade temp 37.6C but no fevers. not yet seen by Dr Taylor but will be by for consultation. senna effective for passing gas, but no BM. Guards unable to ambulate last evening but guard in room continuing shift ensured will get up/moving this afternoon. he is inquiring about discharge -- will plan for d/c tomorrow on oral abx/ear dr moriah if blood cultures remaining negative. questions/concerns addressed at this time. Physical Exam Physical Exam: General: WD/WN male resting in bed, guards at bedside, NAD HEENT: head normocephalic, thick neck, +RIGHT ear tenderness to palpation to tragus/pinna (SIGNIFICANTLY IMPROVED), no surrounding erythema/drainage, trachea midline, +slight lymphadenopathy, no abscess/fluid collection appreciated Resp: CTA, diminished in bases, no w/c, on room air CV: RRR, no significant mrg, no pitting edema GI: +BS, slight distention, nontender : no pa MSK/Neuro: no focal deficit, no slurred speech/facial droop Results & Data Results & Data Vital Signs (Past 12 Hours) Vital Signs Temp Pulse Pulse Resp BP Pulse Ox O2 Del Method 09/05/22 03:04 36.8 C 89 18 126/80 96 Room Air 09/05/22 00:44 96 H 09/04/22 22:00 37.6 C H 68 18 152/77 H 96 Room Air Laboratory Results 09/05/22 09/05/22 09/05/22 Range/Units 06:32 06:32 06:32 WBC 2.37 L (4.8-10.8) K/ul RBC 3.83 L (4.70-6.10) M/uL Hgb 11.3 L (14.0-18.0) g/dl Hct 33.2 L (42.0-52.0) % MCV 86.7 (80.0-100.0) fL MCH 29.5 (25.0-34.0) pg MCHC 34.0 (32.0-36.0) g/dL RDW Std Deviation 41.0 (36.4-46.3) fL RDW Coeff of Efrain 13.3 (11.5-14.5) % Plt Count 156 (130-400) K/uL MPV 9.9 (9.4-12.4) fL Immature Gran % (Auto) 0.4 % Neut % (Auto) 17.4 % Lymph % (Auto) 43.0 % [place] % (Auto) 36.7 % Eos % (Auto) 2.1 % Baso % (Auto) 0.4 % Neut # (Auto) 0.41 L* (1.40-6.50) K/uL Lymph # (Auto) 1.02 L (1.2-3.4) K/uL [place] # (Auto) 0.87 H (0.11-0.59) K/uL Eos # (Auto) 0.05 (0-0.50) K/uL Baso # (Auto) 0.01 (0-0.2) K/uL Immature Gran # (Auto) 0.01 (0.01-0.20) K/uL RBC Morphology Unremarkable Sodium 137 (136-145) mmol/L Potassium 4.2 (3.5-5.1) mmol/L Chloride 107 (98-107) mmol/L Carbon Dioxide 25 (21-32) mmol/L Anion Gap 5 (3-11) BUN 6 (6-23) mg/dl Creatinine 0.87 (0.6-1.4) mg/dl Est Cr Clr Drug Dosing 158.0 ml/min Est GFR ( Amer) 126.0 ml/min Est GFR (Non-Af Amer) 108.7 ml/min BUN/Creatinine Ratio 6.9 L (10-20) Glucose 90 (70-99(Fasting)) mg/dl Calcium 8.6 (8.6-10.3) mg/dl Magnesium 1.9 (1.7-2.4) mg/dl Random Vancomycin 9.7 L (10-20) mcg/ml PG Care Time/CCT Total # of Minutes Spent Total Time Spent with Patient: Total time spent is greater than 50% in coordination of care (as documented) at patient's floor/unit and/or counseling patient: Coding Level of Care Code 76006 SUB INP/OBS CARE 3/50MIN Diagnoses Neutropenic fever D70.9; R50.81 Sepsis A41.9 Otitis externa H60.90 Non-Hodgkin lymphoma C85.90 Anxiety disorder, unspecified F41.9 SIRS (systemic inflammatory response syndrome) R65.10 Neutropenia D70.1; T45.1X5A Neutropenia type: secondary to cancer chemotherapy (7) Neutropenia Neutropenia type: secondary to cancer chemotherapy Qualified Code(s): D70.1 - Agranulocytosis secondary to cancer chemotherapy; T45.1X5A - Adverse effect of antineoplastic and immunosuppressive drugs, initial encounter
[2022-09-05] MEDS: CIPRO 0.3%/DEXAMETHASONE 0.1% OTIC SUSP 7.5ML OTR SCH ×2 (08:33→20:16)
[2022-09-05] MEDS: HEPARIN SOD 5,000 UNIT/0.5 ML VIAL SQ SCH ×2 (08:33→20:16)
[2022-09-05] MEDS: hydrOXYzine HCl 25 MG TAB PO SCH ×2 (08:40→20:16)
[2022-09-05] MEDS: DOCUSATE SODIUM/SENNA 50/8.6MG TAB PO SCH (08:40)
[2022-09-05] MEDS: FAMOTIDINE 20 MG in SYRINGE 3 ML IV SCH (09:09)
--- NOTE | 2022-09-05 09:41 | Pharmacy Report ---
Pharmacy PK ABX Note - Date of Service September 05, 2022 - Assessment and Plan Assessment 41 year old M, with NHL, A-port, receiving IV Vancomycin + Zosyn (day #2) for treatment of sepsis, neutropenic fever. [facility] 100.7 at [facility], no longer febrile here. WBC 1.47, 2 today. Blood cultures - no growth after 24 hours. CXR without evidence of pneumonia, no supplemental oxygen needs. UA ordered, not yet collected. Otitis externa on exam, however, given robust systemic response and immunocompromised status covering with broad spectrum antibiotics empirically. Dayami Petersen PA-C would like at least 48 hours of antibiotics. Plan Vancomycin * Current regimen: 1250 mg IV every 12 hours * Random level obtained 09/05/22 resulted as 9.7 mcg/mL. * Change to 1500 mg IV every 12 hours. This is predicted to achieve target AUC/KENN of 400-600 mg/L.hr * Repeat random level if therapy extends beyond 48 hours. Pharmacy will continue to follow and will adjust dose/frequency as necessary. Thank you. Pharmacy has transitioned to AUC monitoring for vancomycin. AUC/KENN is the preferred PK/PD target and is associated with decreased risk of nephrotoxicity compared to traditional trough targets.
[2022-09-05] MEDS: VANCOMYCIN HCL 1,500 MG in SODIUM CHLORIDE 0.9% 500 ML IV SCH ×2 (10:31→20:17)
[2022-09-06] MEDS: PIPERACILLIN/TAZOBACTAM 4.5 GM in DEXTROSE 5% 100 ML IV SCH (02:11)
--- NOTE | 2022-09-06 05:48 | Consultation ---
Date of Consultation September 05, 2022 Assessment & Plan (1) Neutropenia: Present with neutropenia and fever but already shows strong rebound of his ANC. If that trend continues with a similarly steep slope he can probably be discharged soon but would suggest he complete a 7 to 10-day course of antibiotics prickly with some suspicion of a possible parotitis. We will check B12 and folic acid levels to make sure that there are no nutritional deficiencies that are contributing to the current picture but almost certainly it is a function of chemotherapy jean (2) Non-Hodgkin lymphoma: Patient is tolerating chemotherapy reasonably well other than this episode. We will plan on repeat CT scans after 3 cycles of treatment. Next cycle is scheduled for next week but may be better delayed for 1 additional week to allow for more complete recovery from the current infection. He has a history of being frankly hypergammaglobulinemic we will check immunoglobulin levels just to be sure he does not need those augmented to best counter his infection Plan I have submitted B12 and folic acid levels and also immunoglobulin levels and we should consider addressing any identified deficiencies Otherwise he seems to be recovering strongly and so long as he shows a good trajectory of ANC above 1000 can potentially be discharged on outpatient antibiotics. Blood cultures remain negative could consider extending his antibiotics with Augmentin orally to complete a total of 10 days. 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 This reflects pathologic adenopathy first noted in September,. Patient is currently incarcerated. Other than fatigue he has not had dramatic symptomatology but with progressive changes he started [facility] EP with his first cycle on 07/31/2022 and cycle 2 on 08/21/2022. He has not been receiving myeloid growth factors. He was admitted with neutropenic fever but currently feels well and already shows signs of count recovery. Do note that he did have a COVID19 related episode of pulmonary embolism in March, treated with defined duration Allergies Allergy/AdvReac Type Severity Reaction Status Date / Time No Known Allergies Allergy Verified 09/05/22 18:32 Home Medications Medication Instructions Recorded Confirmed Type albuterol sulfate 90 mcg/actuation 2 puff inhalation Q6H PRN 12/04/21 09/05/22 History aerosol inhaler Shortness Of Breath Or Wheezing docusate sodium 100 mg capsule 100 mg PO BID 09/05/22 09/05/22 History (Colace) etoposide 50 mg capsule 0 mg PO DAILY 09/05/22 09/05/22 History hydroxyzine pamoate 25 mg capsule 25 mg PO BID 09/05/22 09/05/22 History (Vistaril) lactulose 20 gram/30 mL oral 20 g PO BID PRN Constipation 09/05/22 09/05/22 History solution omeprazole 40 mg capsule,delayed 40 mg PO DAILY 09/05/22 09/05/22 History release prednisone 50 mg tablet 100 mg PO DAILY 09/05/22 09/05/22 History prochlorperazine maleate 10 mg 10 mg PO Q6H PRN Nausea And 09/05/22 09/05/22 His tory tablet (Compazine) Vomiting Patient History Medical History (Updated 09/04/22 @ 04:25 by Moraima Villanueva DO) Anemia Anxiety disorder, unspecified Constipation History of COVID-19 03/29/2020 History of tobacco use HTN (hypertension) Impetigo ? 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 Pneumonia due to COVID-19 virus Pulmonary embolism 03/2020 Retinal disorder Rhinitis Scabies h/o, no current infection per PA at [facility] Shortness of breath chronic per PA at [facility] Aide Thrombocytopenia Surgical History Port-A-Cath in place (05/22/22) Insertion of Left Internal Jugular Access Port with Fluoroscopy(Left) - Tim Urban DO, FACS S/P lymph node biopsy (02/21/22) Right Axillary Lymph Node Biopsy with Frozen Section(Right) - Eben Kaufman MD, FACS Social History Smoking Status: Former smoker Tobacco Type: Cigarettes Smoking End Date: February 2022; Second Hand Exposure: No; Do You Dip or Chew Tobacco: No; Hx Alcohol Use: No Hx Substance Use: No Preferred Language: Liberian Communication Ability: Effective Risk And Insurance Manager Required: No Beliefs That Will Affect Care: None Current Living Situation: Other Current Living Situation Comment: Correctional Facility - Aide Other Information That Helps Us Care for You: No Feels Safe at Home: Yes Safety Concerns: Feels Safe At This Time Assistive Devices: None Physical Exam Physical Exam: Afebrile with stable vital signs He is alert and appropriate in no distress His lungs are clear to percussion auscultation Cardiac rhythm is regular The abdomen is benign There is no unusual skin rash Neurologic exam is nonfocal Results & Data Vital Signs (Past 12 Hours) Vital Signs Temp Pulse Pulse Resp BP Pulse Ox O2 Del Method 09/06/22 04:20 36.8 C 90 18 118/74 96 Room Air 09/05/22 22:33 36.7 C 92 H 18 144/73 H 96 Room Air 09/05/22 20:30 98 H 09/05/22 20:26 36.8 C 94 H 18 127/76 98 Room Air Laboratory Results Laboratory Results - last 24 hr 09/05/22 09/05/22 09/05/22 06:32 06:32 06:32 WBC 2.37 L RBC 3.83 L Hgb 11.3 L Hct 33.2 L MCV 86.7 MCH 29.5 MCHC 34.0 RDW Std Deviation 41.0 RDW Coeff of Efrain 13.3 Plt Count 156 MPV 9.9 Immature Gran % (Auto) 0.4 Neut % (Auto) 17.4 Lymph % (Auto) 43.0 [place] % (Auto) 36.7 Eos % (Auto) 2.1 Baso % (Auto) 0.4 Neut # (Auto) 0.41 L* Lymph # (Auto) 1.02 L [place] # (Auto) 0.87 H Eos # (Auto) 0.05 Baso # (Auto) 0.01 Immature Gran # (Auto) 0.01 RBC Morphology Unremarkable Sodium 137 Potassium 4.2 Chloride 107 Carbon Dioxide 25 Anion Gap 5 BUN 6 Creatinine 0.87 Est Cr Clr Drug Dosing 158.0 Est GFR ( Amer) 126.0 Est GFR (Non-Af Amer) 108.7 BUN/Creatinine Ratio 6.9 L Glucose 90 Calcium 8.6 Magnesium 1.9 Nasal Screen MRSA (PCR) Random Vancomycin 9.7 L 09/06/22 02:16 WBC RBC Hgb Hct MCV MCH MCHC RDW Std Deviation RDW Coeff of Efrain Plt Count MPV Immature Gran % (Auto) Neut % (Auto) Lymph % (Auto) [place] % (Auto) Eos % (Auto) Baso % (Auto) Neut # (Auto) Lymph # (Auto) [place] # (Auto) Eos # (Auto) Baso # (Auto) Immature Gran # (Auto) RBC Morphology Sodium Potassium Chloride Carbon Dioxide Anion Gap BUN Creatinine Est Cr Clr Drug Dosing Est GFR ( Amer) Est GFR (Non-Af Amer) BUN/Creatinine Ratio Glucose Calcium Magnesium Nasal Screen MRSA (PCR) Negative Random Vancomycin Diagnostic Findings Chest X-Ray 09/04/22 00:08 XR chest 1V portable HISTORY: 41 years-old Male Sepsis acute sepsis COMPARISON: 05/22/2022 TECHNIQUE: AP view of the chest FINDINGS: Left pectoral acute port catheter appears unchanged. Cardiac silhouette is normal in size. No pneumothorax, pleural effusion or overt pulmonary edema. Mild subsegmental bibasilar atelectasis. Bones appear grossly intact. IMPRESSION: No acute process. ACT 112: Negative or not required by law. The above report was generated using voice recognition software. It may contain grammatical, syntax or spelling errors. Electronically signed by: Hima Sesay M.D. 09/04/2022 6:[address] 09/04/22 01:42 Exam(s): CT FACIAL With Contrast IV Amt: 90 ML OPTIRAY 320 EXAM: CT Maxillofacial With Intravenous Contrast CLINICAL HISTORY: Reason for exam: eval right ear and right parotid/mastoid. TECHNIQUE: Axial computed tomography images of the face with intravenous contrast. CTDI is 14.45 mGy and DLP is 319.09 mGy-cm. Automated exposure control was utilized for the study. A dose lowering technique was utilized adhering to the principles of ALARA. CONTRAST: Patient received 90 ML OPTIRAY 320 of IV contrast COMPARISON: No relevant prior studies available. FINDINGS: Bones/joints: No acute fracture. Soft tissues: Unremarkable. Lymph nodes: There are a few enlarged lymph nodes in the right cervical chain as well as within the right parotid gland (image 198 series 3). No focal fluid collection or definite mass is seen. Orbits: Unremarkable. Sinuses: Unremarkable. No air-fluid levels. IMPRESSION: Right cervical/parotid lymphadenopathy which could be reactive. Electronically signed by: Yuri Dickens MD 09/04/22 02:37 AM PG Care Time/CCT Total # of Minutes Spent Total Time Spent with Patient: Total time spent is greater than 50% in coordination of care (as documented) at patient's floor/unit and/or counseling patient: Coding Level of Care Code 43047 IN/OBS CONSULT LVL 2,35M Diagnoses Neutropenia D70.1; T45.1X5A Neutropenia type: secondary to cancer chemotherapy Non-Hodgkin lymphoma C85.90 Comment Note that this dictation reflects examination and assessment performed on 09/05/2022 (1) Neutropenia Neutropenia type: secondary to cancer chemotherapy Qualified Code(s): D70.1 - Agranulocytosis secondary to cancer chemotherapy; T45.1X5A - Adverse effect of antineoplastic and immunosuppressive drugs, initial encounter
[2022-09-06 07:05] LABS: Hematocrit (blood only) 32.7 % (42.0-52.0); Hemoglobin 11.5 g/dl (14.0-18.0); Mean Corpuscular Hemoglobin 29.4 pg (25.0-34.0); Mean Corpuscular Hgb Conc 35.2 g/dL (32.0-36.0); Mean Corpuscular Volume 83.6 fL (80.0-100.0); Mean Platelet Volume 9.5 fL (9.4-12.4); Platelet Count 231 K/uL (130-400); RDW Coefficient of Variation 13.4 % (11.5-14.5); Red Blood Count 3.91 M/uL (4.70-6.10); White Blood Count 3.31 K/ul (4.8-10.8)
[2022-09-06 07:31] LABS: Calcium 8.9 mg/dl (8.6-10.3); Creatinine Clr Calc Pharmacy 154.3 ml/min; Est GFR (African American) 124.8 ml/min; Est GFR (Non-African American) 107.7 ml/min; Magnesium 1.7 mg/dl (1.7-2.4)
[2022-09-06 07:41] LABS: Immunoglobulin A 284.9 mg/dl (70-400); Immunoglobulin G 1225.7 mg/dl (635-1741); Immunoglobulin M < 20.0 mg/dl (45-281)
[2022-09-06] MEDS ORDERED: MAGNESIUM SULFATE / D5W 1 GM/100 ML BAG IV ONE (07:41)
--- NOTE | 2022-09-06 07:41 | Hospitalist Progress Note ---
Date of Service September 06, 2022 Assessment & Plan Admission and Anticipated Discharge Date Admission Date: September 04, 2022 Results & Data Results & Data Vital Signs (Past 12 Hours) Vital Signs Temp Pulse Pulse Resp BP Pulse Ox O2 Del Method 09/06/22 04:20 36.8 C 90 18 118/74 96 Room Air 09/05/22 22:33 36.7 C 92 H 18 144/73 H 96 Room Air 09/05/22 20:30 98 H 09/05/22 20:26 36.8 C 94 H 18 127/76 98 Room Air Laboratory Results 09/06/22 09/06/22 09/06/22 Range/Units 06:08 06:08 06:08 WBC (4.8-10.8) K/ul RBC (4.70-6.10) M/uL Hgb (14.0-18.0) g/dl Hct (42.0-52.0) % MCV (80.0-100.0) fL MCH (25.0-34.0) pg MCHC (32.0-36.0) g/dL RDW Std Deviation (36.4-46.3) fL RDW Coeff of Efrain (11.5-14.5) % Plt Count (130-400) K/uL MPV (9.4-12.4) fL Sodium 138 (136-145) mmol/L Potassium 4.0 (3.5-5.1) mmol/L Chloride 106 (98-107) mmol/L Carbon Dioxide 25 (21-32) mmol/L Anion Gap 7 (3-11) BUN 8 (6-23) mg/dl Creatinine 0.89 (0.6-1.4) mg/dl Est Cr Clr Drug Dosing 154.3 ml/min Est GFR ( Amer) 124.8 ml/min Est GFR (Non-Af Amer) 107.7 ml/min BUN/Creatinine Ratio 9.0 L (10-20) Glucose 86 (70-99(Fasting)) mg/dl Calcium 8.9 (8.6-10.3) mg/dl Magnesium 1.7 (1.7-2.4) mg/dl Vitamin B12 Pending Folate Pending Nasal Screen MRSA (PCR) (Negative) IgG Pending IgA Pending IgM Pending 09/06/22 09/06/22 Range/Units 06:08 02:16 WBC 3.31 L (4.8-10.8) K/ul RBC 3.91 L (4.70-6.10) M/uL Hgb 11.5 L (14.0-18.0) g/dl Hct 32.7 L (42.0-52.0) % MCV 83.6 (80.0-100.0) fL MCH 29.4 (25.0-34.0) pg MCHC 35.2 (32.0-36.0) g/dL RDW Std Deviation 40.0 (36.4-46.3) fL RDW Coeff of Efrain 13.4 (11.5-14.5) % Plt Count 231 (130-400) K/uL MPV 9.5 (9.4-12.4) fL Sodium (136-145) mmol/L Potassium (3.5-5.1) mmol/L Chloride (98-107) mmol/L Carbon Dioxide (21-32) mmol/L Anion Gap (3-11) BUN (6-23) mg/dl Creatinine (0.6-1.4) mg/dl Est Cr Clr Drug Dosing ml/min Est GFR ( Amer) ml/min Est GFR (Non-Af Amer) ml/min BUN/Creatinine Ratio (10-20) Glucose (70-99(Fasting)) mg/dl Calcium (8.6-10.3) mg/dl Magnesium (1.7-2.4) mg/dl Vitamin B12 Folate Nasal Screen MRSA (PCR) Negative (Negative) IgG IgA IgM PG Care Time/CCT Total # of Minutes Spent Total Time Spent with Patient: Total time spent is greater than 50% in coordination of care (as documented) at patient's floor/unit and/or counseling patient: Coding Diagnoses
[2022-09-06 07:43] LABS: Vitamin B12 560 pg/ml (180-914)
[2022-09-06 07:51] LABS: ALC (manual) 0.93 K/uL (1.2-3.4); ANC (manual) 1.32 K/uL (1.4-6.5); Basophils # (manual) 0.03 K/uL (0-0.2); Basophils % (manual) 1 %; Blast # (manual) 0.03 K/uL (0-0); Blast Cells % (manual) 1 %; Eosinophils % (manual) 3 %; Lymphocytes # (manual) 0.93 K/uL (1.2-3.4); Lymphocytes % (manual) 28 %; Monocytes # (manual) 0.93 K/uL (0.11-0.59); Monocytes % (manual) 28 %; Neutrophils # (manual) 1.32 K/uL (1.40-6.50); Neutrophils % (manual) 40 %; RBC Morphology Unremarkable
[2022-09-06 07:57] VITALS: O2SAT 97
[2022-09-06] MEDS ORDERED: FAMOTIDINE 20 MG TAB PO SCH (09:00)
[2022-09-06] MEDS: VANCOMYCIN HCL 1,500 MG in SODIUM CHLORIDE 0.9% 500 ML IV SCH (09:11)
[2022-09-06] MEDS: CIPRO 0.3%/DEXAMETHASONE 0.1% OTIC SUSP 7.5ML OTR SCH (09:18)
[2022-09-06] MEDS: HEPARIN SOD 5,000 UNIT/0.5 ML VIAL SQ SCH (09:18)
[2022-09-06] MEDS: DOCUSATE SODIUM/SENNA 50/8.6MG TAB PO SCH (09:21)
[2022-09-06] MEDS: hydrOXYzine HCl 25 MG TAB PO SCH (09:21)
[2022-09-06] MEDS ORDERED: AMOXICILLIN/CLAVULANATE 875 MG TAB PO SCH (10:15)
[2022-09-06 11:59] VITALS: TEMP 98.2
--- NOTE | 2022-09-06 12:04 | Discharge Summary ---
Date of Service September 06, 2022 Admission HPI Per Admitting Provider 41-year-old male past medical history significant for T-cell lymphoma undergoing current chemotherapy, anxiety presented to the ER from correctional facility for 1 day of fever and right ear pain. In the ER patient initially noted to have a heart rate in the 140s, sinus tachycardia, improved with IV fluids and pain medication. Lab studies notable for WBC count of 1.47 with a neutrophil count of 0.12, magnesium 1.5, negative procalcitonin, COVID-[address] of the face revealed right cervical/parotid lymphadenopathy, possibly reactive. No focal fluid collections or definitive masses noted. ER provider noted otitis externa on exam, given Unasyn and Ciprodex drops. Blood cultures were collected prior to antibiotics. Hospitalist service was consulted for admission for sepsis in immunocompromised patient. Patient denies chest pain, SOB, nausea, vomiting, abdominal pain, new wounds or injuries. Admission Exam Per Admitting Provider Constitutional: WD/WN, vitals as above Respiratory: normal respiratory effort, lungs clear to auscultation Cardiovascular: RRR, no murmur, no edema Gastrointestinal (Abdomen): normal bowel sounds, soft, nontender, no hepatosplenomegaly Skin: no rashes, warm and dry Psychiatric: A+Ox3, euthymic affect Principal Diagnosis Sepsis, Right Otitis Externa, Neutropenic Fever Discharge Exam General: WD/WN male resting in bed, guards at bedside, NAD HEENT: head normocephalic, thick neck, +RIGHT ear tenderness to palpation to tragus/pinna (SIGNIFICANTLY IMPROVED), no surrounding erythema/drainage, trachea midline, +slight lymphadenopathy, no abscess/fluid collection appreciated Chest: L port present, no erythema/redness/drainage or sign of infection, no tenderness Resp: CTA, diminished in bases, no w/c, on room air CV: RRR, no significant mrg, no pitting edema GI: +BS, slight distention, nontender : no pa MSK/Neuro: no focal deficit, no slurred speech/facial droop Discharge Data Allergies Allergy/AdvReac Type Severity Reaction Status Date / Time No Known Allergies Allergy Verified 09/05/22 18:32 Consultations 09/04/22 03:00 ED Decision to Admit Stat 09/04/22 12:29 Consult Hematology Routine Ordered Studies Chest X-Ray 09/04/22 00:08 XR chest 1V portable HISTORY: 41 years-old Male Sepsis acute sepsis COMPARISON: 05/22/2022 TECHNIQUE: AP view of the chest FINDINGS: Left pectoral acute port catheter appears unchanged. Cardiac silhouette is normal in size. No pneumothorax, pleural effusion or overt pulmonary edema. Mild subsegmental bibasilar atelectasis. Bones appear grossly intact. IMPRESSION: No acute process. ACT 112: Negative or not required by law. The above report was generated using voice recognition software. It may contain grammatical, syntax or spelling errors. Electronically signed by: Hima Sesay M.D. 09/04/2022 6:[address] 09/04/22 01:42 Exam(s): CT FACIAL With Contrast IV Amt: 90 ML OPTIRAY 320 EXAM: CT Maxillofacial With Intravenous Contrast CLINICAL HISTORY: Reason for exam: eval right ear and right parotid/mastoid. TECHNIQUE: Axial computed tomography images of the face with intravenous contrast. CTDI is 14.45 mGy and DLP is 319.09 mGy-cm. Automated exposure control was utilized for the study. A dose lowering technique was utilized adhering to the principles of ALARA. CONTRAST: Patient received 90 ML OPTIRAY 320 of IV contrast COMPARISON: No relevant prior studies available. FINDINGS: Bones/joints: No acute fracture. Soft tissues: Unremarkable. Lymph nodes: There are a few enlarged lymph nodes in the right cervical chain as well as within the right parotid gland (image 198 series 3). No focal fluid collection or definite mass is seen. Orbits: Unremarkable. Sinuses: Unremarkable. No air-fluid levels. IMPRESSION: Right cervical/parotid lymphadenopathy which could be reactive. Electronically signed by: Yuri Dickens MD 09/04/22 02:37 AM Hospital Course (1) Neutropenic fever: Fever at correctional facility to 100.7 per patient report; noted to be leukopenic/neutropenic with sinus tachycardia on admission, no longer febrile here CXR w/o pneumonia UA not suggestive of infection, noting likely dehydration CT facial w/ Right cervical/parotid lymphadenopathy which could be reactive. Right otitis externa on exam, however, given robust systemic response and immunocompromised status, covered with broad spectrum Abx with Vanc/Zosyn (given Unasyn in ER). Ciprodex drops Blood cultures obtained on admission -- ngtd at 48 hours. No fevers Neutropenic precautions in place -- heme/onc consulted -- suspect picture c/w function of chemotherapy jean w/ neuropenia/recent chemotherapy -- will have outpt f/u, possible delay next chemo by a week (see consultation in record) IVF replacement for dehydration/tachycardia/sepsis with improvement in rates and remained <100 past 24-48 hours Supportive care, pain control/antiemetics prn Neutrophil count improved, >1k, ok from heme/onc for discharge Significant improvement 09/05 and wanting to dc but discussed monitoring bcx x 48 hours prior to discharge. Continued improvement on exam 09/06 and blood cultures remained negative and transitioned to Augmentin and plan to complete 10 day total course along w/ Ciprodex drops. Outpt f/u Dr Taylor. Report called provider-provider to [facility] to ensure no issues w/ obtaining abx. Patient reported tylenol effective for pain control and can continue that at discharge (2) Sepsis: Tachycardia and leukopenia/neutropenia in immunocompromised patient, also with reported Hx of fever a few hours prior to arrival to ER Lactate 1.1 on admission Right otitis externa on exam -- abx in IV/drops as above Transitioned to augmentin to cover for above, ciprodex for RIGHT ear Sepsis resolved w/ treatment (3) Otitis externa: Right otitis externa, continued Ciprodex drops and complete 7 day course at discharge Pain control -- given toradol x 2 doses (one on admission) and now controlled w/ tylenol alone Denied need for additional pain meds at dc (4) Non-Hodgkin lymphoma: Undergoing active chemotherapy, follows with Dr. Taylor *Chemotherapy induced pancytopenia -- With neutropenia on admission, not unexpected given chemo Isolation precautions while inpatient, neutropenia improving, >1k IgM low but discussed w/ Dr Taylor, given IgG ok, not to give any IVIG B12/folate not deficient F/u Dr Taylor at discharge -- timing for next chemo TBD in f/u (5) Anxiety disorder, unspecified: Continued hydroxyzine (6) SIRS (systemic inflammatory response syndrome): as above, abx, IVF capped and tolerating PO w/o further tachycardia or fevers (7) Neutropenia: chemotherapy induced, follows w/ dr Taylor -- consultation placed as above neutropenic precautions in place tx as outlined above, improved on repeat labs enough to go home outpt f/u Plan d/c on Augmentin PO BID x total 10 day course, ciprodex to complete 7 day course Outpt f/u Dr Taylor as well as medical provider at the [facility] Report/sign out given to [facility] prior to discharge for any questions/concerns Total Time Total Time Spent Total Time Spent (In Minutes): 45 Discharge Plan Discharge Items Patient Disposition: [facility] Reason For Visit: NEUTROPENIC FEVER Discharge Diagnosis: Neutropenic Fever, Sepsis, Otitis Externa Goals: You have been hospitalized for an acute medical problem. During your stay at [facility], we have made an effort to correct the problem that brought you to the hospital while keeping you as comfortable as possible. Medications were used to bring your condition under control and your discharge instructions will include directions for any medications you should take after leaving the hospital. Please make sure you see your Primary Care Provider as part of your follow up plan. Activity: As commented below Non-emergency contact: Primary Care Provider and Oncologist Call non-emergency contact if: you have any medication questions, your symptoms worsen, your pain is not controlled and you have a fever Follow-up/Referrals: Pedro Luis Taylor MD [Physician] - (within the week) Aide VILLEGAS [Primary Care Provider] - Diet: Regular Addtl Attending Provider Instructions: You have been hospitalized for sepsis. Source is likely related to your right ear infection and you have been on IV antibiotics for broad coverage and your blood cultures have been negative and I discussed case with Dr Taylor and we have decided to continue antibiotics orally in the form Augmentin one tablet by mouth twice daily for another seven days after your dose this evening, and Ciprodex drops to the right ear twice daily for a total of seven days (another four and a half days). You will need to follow up with Dr Taylor after discharge for repeat labs to monitor your blood counts as well as continued chemotherapy, which may be delayed a week depending on follow up. Please return to the ER with any repeat fevers, worsening pain, shortness of breath, or for any other symptoms concerning for you. It has been a pleasure being a part of the medical team providing for you while you have been in the hospital. Take care! Pending Studies at Discharge: Yes Studies:: Blood cultures -- no growth to date Stand-Alone Forms: [facility] Skilled Items Patient informed of condition?: Yes Discharge Level of Care: Other Communicable Disease: No Discharge Prognosis: Improving Lines: None Urinary Catheter: No Medications and DC Order Prescriptions: New ciprofloxacin-dexamethasone 0.3-0.1 % Drops,Suspension 4 drp OTR BID 5 Days Qty: 7.5 0RF amoxicillin-pot clavulanate 875-125 mg Tablet 1 tab PO BIDM 8 Days Qty: 15 0RF acetaminophen 500 mg tablet 1,000 mg PO Q8H PRN (Reason: fever or pain) Qty: 7 0RF Continued albuterol sulfate 90 mcg/actuation HFA aerosol inhaler 2 puff inhalation Q6H PRN (Reason: Shortness Of Breath Or Wheezing) prochlorperazine maleate [Compazine] 10 mg Tablet 10 mg PO Q6H PRN (Reason: Nausea And Vomiting) omeprazole 40 mg Capsule,Delayed Release(Dr/Ec) 40 mg PO DAILY prednisone 50 mg Tablet 100 mg PO DAILY docusate sodium [Colace] 100 mg Capsule 100 mg PO BID etoposide 50 mg Capsule 0 mg PO DAILY Rx Instructions: Patient only takes this medication 1-2 days AFTER chemotherapy until told to stop. Medication is dispensed from cancer center. hydroxyzine pamoate [Vistaril] 25 mg Capsule 25 mg PO BID lactulose 20 gram/30 mL Solution 20 g PO BID PRN (Reason: Constipation) Discharge Orders: Discharge Order (Routine); Ordered 09/06/22 Ordered By: Dayami Petersen Admission Data Admit Date/Time: 09/04/22 03:32 Attending Provider: Kojo Bettencourt Admit Provider: Milly Solares Primary Care Provider: Aide VILLEGAS Other Providers: Milly Solares ; Pedro Luis Taylor Other Interventions: Discharge Summary Assessment (RN) Last Done: 09/06/22 12:46 Supervising Physician Co-Signing Physician Notes The patient was seen by me. The chart was reviewed. Case discussed with KIRSTEN Ivan. Agree with assessment and plan. [facility] will [facility] today, September 06 Coding Level of Care Code 10025 INP/OBS DISCH >30 MIN Diagnoses Neutropenic fever D70.9; R50.81 Sepsis A41.9 Otitis externa H60.90 Non-Hodgkin lymphoma C85.90 Anxiety disorder, unspecified F41.9 SIRS (systemic inflammatory response syndrome) R65.10 Neutropenia D70.1; T45.1X5A Neutropenia type: secondary to cancer chemotherapy
[2022-09-06 12:48] VITALS: BP 126/84; PULSE 92
== END 2022-09-06 15:00 | DRG 871 ==
LOC: ED 23:51 → SUATTDRO 09-04 03:32 → 2N 09-04 03:32

== ENCOUNTER 2022-10-22 10:55 | Inpatient (IN) ==
--- NOTE | 2022-10-22 12:07 | XRay Report ---
XR chest 1V not portable HISTORY: 41 years-old Male Sepsis acute sepsis COMPARISON: 09/04/2022 TECHNIQUE: PA view of the chest FINDINGS: Cardiomediastinal and hilar silhouettes are unchanged. Left IJ [id number] catheter. No pneumothora x, pleural effusion, airspace consolidation or pulmonary edema. Bones appear grossly intact. IMPRESSION: No acute process. ACT 112: Negative or not required by law. The above report was generated using voice recognition software. It may contain grammatical, syntax o r spelling errors. Electronically signed by: Hima Sesay M.D. 10/22/2022 12:06 PM
[2022-10-22 12:51] LABS: Albumin Globulin Ratio 1.3 (0.9-2); Albumin Level 3.9 gm/dl (3.4-5.0); BUN Creatinine Ratio 17.6 (10-20); Calcium 9.1 mg/dl (8.6-10.3); Creatinine Clr Calc Pharmacy 194.9 ml/min; Est GFR (African American) 139.4 ml/min; Est GFR (Non-African American) 120.3 ml/min; Globulin 3.1 gm/dl (2.5-4.0); Magnesium 1.9 mg/dl (1.7-2.4); Potassium 4.1 mmol/L (3.5-5.1)
[2022-10-22 13:07] LABS: Partial Thromboplastin Time 29.2 Seconds (21.0-31.0); Prothrombin Time 10.9 Seconds (9.0-12.0)
[2022-10-22 13:10] LABS: Procalcitonin 0.16 ng/ml (0-0.5)
[2022-10-22 13:12] LABS: Hematocrit (blood only) 35.3 % (42.0-52.0); Mean Corpuscular Hemoglobin 30.5 pg (25.0-34.0); Mean Corpuscular Volume 89.8 fL (80.0-100.0); Mean Platelet Volume 10.9 fL (9.4-12.4); Platelet Count 58 K/uL (130-400); RDW Coefficient of Variation 15.3 % (11.5-14.5); RDW Standard Deviation 50.4 fL (36.4-46.3); Red Blood Count 3.93 M/uL (4.70-6.10)
[2022-10-22 13:14] LABS: White Blood Count 0.89 K/ul (4.8-10.8)
[2022-10-22 13:16] LABS: Lyme Ab IgG w/WB Rflx Negative (Negative); Lyme Ab IgM w/WB Rflx Negative (Negative)
--- NOTE | 2022-10-22 14:20 | Emergency Department Note ---
Impression & Plan Neutropenia, Anemia, Thrombocytopenia, Fever, Lymphoma, Pharyngitis ED Provider Note NAME: [id number] ATIYA AGE: 41 SEX: M : 1980 ARRIVES VIA: Walk-In INFORMANT: [Patient] ED PROVIDER(S): [Yogi Rodriguez MD] CHIEF COMPLAINT: Fever HISTORY OF PRESENT ILLNESS: The patient is a 41-year-old male with lymphoma. He is on chemotherapy. His draw bench operator/oncologist is Dr. Taylor. The patient did have infusion chemotherapy 8 days ago. 3 days in a row after, he received oral chemotherapy. He is not certain he was supposed to receive 3 days, he thinks just 2 days. He may have received an extra dose. The patient has a sore throat, he has had this for several days. No cough, no shortness of breath or abdominal pain. He has noticed some diarrhea which has been nonbloody. He has not had a rash. No sick contacts. He is currently staying at the [facility]. Patient has felt sweaty and has had a low-grade fever. Because of the neutropenia, he was sent for evaluation. PMHx/PSHx: See Below SOCIAL HISTORY: See Below. PHYSICAL EXAM: GENERAL: Patient is in no acute distress. HEENT: No acute trauma, normocephalic atraumatic, mucous membranes moist, no nasal congestion. Bilateral throat erythema noted, no evidence for peritonsillar abscess. NECK: No stridor, no adenopathy, no meningismus, trachea is midline. LUNGS: Clear to auscultation bilaterally, no wheeze, no rhonchi, breath sounds equal. HEART: Without murmurs gallops or rubs, regular rate and rhythm. ABDOMEN: Soft, nontender, bowel sounds positive, no peritonitis. EXTREMITIES: No cyanosis or edema, full range of motion of all the joints without pain or difficulty, no signs for acute trauma. NEUROLOGIC: Oriented x 3, no acute motor or sensory deficits, no focal weakness. SKIN: No rash, no jaundice, no diaphoresis. DIFFERENTIAL DIAGNOSIS: Bacteremia or sepsis, strep pharyngitis, viral pharyngitis, COVID-19, influenza, UTI, cellulitis, electrolyte imbalance, chemotherapy reaction, among others. EMERGENCY DEPARTMENT COURSE/PROCEDURES: Prior/Outside records reviewed: Most recent discharge summary. ECG per my interpretation: Indication was possible sepsis. The ECG shows a sinus tachycardia with a rate of 107. There is a potential old septal infarct. There is no ST elevation, no PVCs. The QTc is 429. Continuous Cardiac Monitoring per my interpretation: An order was placed for continuous cardiac monitoring. The monitor shows a rate of 98 with normal sinus rhythm. Critical Care Note: I have personally spent 53 minutes of critical care time in the direct management of this patient. This includes bedside care, interpretation of diagnostic studies, and testing, discussion with consultants, patient, and family members, and other required patient management activities. This 53 minutes is in excess of all separately billable procedures. MEDICAL DECISION MAKING: The patient is neutropenic with a white blood cell count of 0.89. His hemoglobin is low at 12. He does have a low platelet count at 58. No coagulop athy. No renal failure or significant electrolyte abnormality. Lactic acid level is not elevated making severe sepsis less likely. There was no concerning liver enzyme elevation. Procalcitonin level was not not elevated making serious bacterial infection less likely. Urinalysis showed no findings of infection. Respiratory bio fire was completely negative. Lyme disease testing was negative. Strep testing was negative. Chest film per my review did not show mediastinal widening, pneumonia or pneumothorax. On exam, the patient was nontoxic, he was resting comfortably on the stretcher. The patient was given IV cefepime as empiric antibiotic coverage. He was given IV saline for hydration. The source for his complaints and presumed fever are unclear. The patient does have a pharyngitis though and certainly, he may have a viral illness responsible for his complaints. Given the profound neutropenia, given the accidental additional dose of oral chemotherapy administered, given his current incarceration, a hospital stay was felt warranted. I did speak with Dr. Andrews of hematology/oncology. He confirmed the need for a hospital stay. I did speak with the patient and the guards. [facility] The on-call hospitalist was consulted. Case management has been involved. DISPOSITION: Patient's presentation and findings warrant a hospital stay. Past Med/Surg History Medical History Anemia Anxiety disorder, unspecified Constipation History of COVID-19 03/29/2020 History of tobacco use HTN (hypertension) Impetigo ? 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 Pneumonia due to COVID-19 virus Pulmonary embolism 03/2020 Retinal disorder Rhinitis Scabies h/o, no current infection per PA at [facility] Shortness of breath chronic per PA at [facility] SIRS (systemic inflammatory response syndrome) Thrombocytopenia Surgical History Port-A-Cath in place (05/22/22) Insertion of Left Internal Jugular Access Port with Fluoroscopy(Left) - Tim Urban DO, FACS S/P lymph node biopsy (02/21/22) Right Axillary Lymph Node Biopsy with Frozen Section(Right) - Eben Kaufman MD, FACS Social History Smoking Status: Never smoker Tobacco Type: Cigarettes Second Hand Exposure: No; Do You Dip or Chew Tobacco: No; Hx Alcohol Use: No Hx Substance Use: No Preferred Language: Luxembourgish Communication Ability: Effective Real Estate Recruiter Required: No Beliefs That Will Affect Care: None Current Living Situation: Other Current Living Situation Comment: [facility] - Aide Feels Safe at Home: Yes Assistive Devices: None Allergies Allergies Allergy/AdvReac Type Severity Reaction Status Date / Time No Known Allergies Allergy Verified 10/22/22 16:15 Home Meds Home Medications Medication Instructions Recorded Confirmed albuterol sulfate 90 mcg/actuation 2 puff inhalation QID PRN 10/22/22 10/22/22 aerosol inhaler Shortness Of Breath Or Wheezing heparin lock flush (porcine) 100 0 unit IV MO 10/22/22 10/22/22 unit/mL intravenous solution hydroxyzine pamoate 25 mg capsule 25 mg PO BID 10/22/22 10/22/22 omeprazole 40 mg capsule,delayed 40 mg PO DAILY 10/22/22 10/22/22 release Results & Data (ED) Vital Signs Vital Signs - 24 hr 10/22/22 10:59 Temperature 36.8 C Temperature Source Oral Pulse Rate 98 H Respiratory Rate 18 Respiratory Effort / Characteristics Non-Labored Spontaneous Respiratory Depth Normal Respiratory Pattern Regular Blood Pressure 134/80 Blood Pressure Mean 98 Pulse Oximetry 97 Oxygen Delivery Method Room Air Sepsis Recent Fever Within 48 Hours Yes Sepsis New/Unexplained Change in Mental Status No Sepsis Action Taken by Nursing No Action Required Home Medications Current Medication List: was personally reviewed by me Laboratory Data Attestation: I reviewed the patient's lab results. 10/22/22 12:00 10/22/22 12:00 Lab Results 10/22/22 10/22/22 10/22/22 Range/Units 12:00 12:00 12:00 WBC 0.89 L* (4.8-10.8) K/ul RBC 3.93 L (4.70-6.10) M/uL Hgb 12.0 L (14.0-18.0) g/dl Hct 35.3 L (42.0-52.0) % MCV 89.8 (80.0-100.0) fL MCH 30.5 (25.0-34.0) pg MCHC 34.0 (32.0-36.0) g/dL RDW Std Deviation 50.4 H (36.4-46.3) fL RDW Coeff of Efrain 15.3 H (11.5-14.5) % Plt Count 58 L (130-400) K/uL MPV 10.9 (9.4-12.4) fL Immature Gran % (Auto) Cancelled Neut % (Auto) Cancelled Lymph % (Auto) Cancelled Meigs % (Auto) Cancelled Eos % (Auto) Cancelled Baso % (Auto) Cancelled Neut # (Auto) Cancelled Lymph # (Auto) Cancelled Meigs # (Auto) Cancelled Eos # (Auto) Cancelled Baso # (Auto) Cancelled Immature Gran # (Auto) Cancelled Neutrophils % (Manual) Cancelled Band Neutrophils % Cancelled Lymphocytes % (Manual) Cancelled Prolymphocyte % Cancelled Reactive Lymphs % (Man) Cancelled Monocytes % (Manual) Cancelled Eosinophils % (Manual) Cancelled Basophils % (Manual) Cancelled Metamyelocytes % (Man) Cancelled Myelocytes % (Man) Cancelled Promyelocytes % (Man) Cancelled Blast Cells % (Manual) Cancelled Plasma Cell % (Manual) Cancelled Other Cells % Cancelled Nucleated RBC % Cancelled Neutrophils # (Manual) Cancelled Band Neutrophils # Cancelled Total Absolute Neuts Cancelled Lymphocytes # (Manual) Cancelled Prolymphocyte # Cancelled Reactive Lymphs # Cancelled Total Abs Lymphocytes Cancelled Monocytes # (Manual) Cancelled Eosinophils # (Manual) Cancelled Basophils # (Manual) Cancelled Metamyelocytes # (Man) Cancelled Myelocytes # (Manual) Cancelled Promyelocytes # (Man) Cancelled Blast Cells # (Man) Cancelled Plasma Cell # (Manual) Cancelled Other Cells # Cancelled Nucleated RBCs # (Man) Cancelled Hypersegmented Neuts Cancelled Hyposegmented Neuts Cancelled Hypogranular Neuts Cancelled Large Granular Lymphs Cancelled # Lrg Granular Lymphs Cancelled Hairy Cells Cancelled Smudge Cells Cancelled Toxic Granulation Cancelled Toxic Vacuolation Cancelled Dohle Bodies Cancelled Susan Rods Cancelled Hypogranular Platelets Cancelled Giant Platelets Cancelled Platelet Satelliting Cancelled RBC Morphology Cancelled Polychromasia Cancelled Hypochromasia Cancelled Poikilocytosis Cancelled Basophilic Stippling Cancelled Anisocytosis Cancelled Microcytosis Cancelled Macrocytosis Cancelled Spherocytes Cancelled Pappenheimer Bodies Cancelled Sickle Cells Cancelled Target Cells Cancelled Tear Drop Cells Cancelled Ovalocytes Cancelled Stomatocytes Cancelled John-[place] Bodies Cancelled Echinocytes Cancelled Acanthocytes (Spur) Cancelled Rouleaux Cancelled RBC Agglutinates Cancelled Schistocytes Cancelled Sezary Cell Cancelled PT (9.0-12.0) Seconds INR (0.9-1.1) APTT (21.0-31.0) Seconds PTT Ratio Sodium 135 L (136-145) mmol/L Potassium 4.1 (3.5-5.1) mmol/L Chloride 101 (98-107) mmol/L Carbon Dioxide 26 (21-32) mmol/L Anion Gap 8 (3-11) BUN 12 (6-23) mg/dl Creatinine 0.68 (0.6-1.4) mg/dl Est Cr Clr Drug Dosing 194.9 ml/min Est GFR ( Amer) 139.4 ml/min Est GFR (Non-Af Amer) 120.3 ml/min BUN/Creatinine Ratio 17.6 (10-20) Glucose 100 H (70-99(Fasting)) mg/dl Lactate 0.9 (0.4-2.0) mmol/L Calcium 9.1 (8.6-10.3) mg/dl Magnesium 1.9 (1.7-2.4) mg/dl Total Bilirubin 1.0 (0.2-1.0) mg/dl AST 8 L (13-39) U/L ALT 15 (7-52) U/L Alkaline Phosphatase 58 (34-104) U/L Total Protein 7.0 (6.0-8.3) gm/dl Albumin 3.9 (3.4-5.0) gm/dl Globulin 3.1 (2.5-4.0) gm/dl Albumin/Globulin Ratio 1.3 (0.9-2) Procalcitonin (0-0.5) ng/ml Lyme Disease IgG Ab (Negative) Lyme Disease IgM Ab (Negative) Blood Parasites ID Cancelled 10/22/22 10/22/22 Range/Units 12:00 12:00 WBC (4.8-10.8) K/ul RBC (4.70-6.10) M/uL Hgb (14.0-18.0) g/dl Hct (42.0-52.0) % MCV (80.0-100.0) fL MCH (25.0-34.0) pg MCHC (32.0-36.0) g/dL RDW Std Deviation (36.4-46.3) fL RDW Coeff of Efrain (11.5-14.5) % Plt Count (130-400) K/uL MPV (9.4-12.4) fL Immature Gran % (Auto) Neut % (Auto) Lymph % (Auto) Meigs % (Auto) Eos % (Auto) Baso % (Auto) Neut # (Auto) Lymph # (Auto) Meigs # (Auto) Eos # (Auto) Baso # (Auto) Immature Gran # (Auto) Neutrophils % (Manual) Band Neutrophils % Lymphocytes % (Manual) Prolymphocyte % Reactive Lymphs % (Man) Monocytes % (Manual) Eosinophils % (Manual) Basophils % (Manual) Metamyelocytes % (Man) Myelocytes % (Man) Promyelocytes % (Man) Blast Cells % (Manual) Plasma Cell % (Manual) Other Cells % Nucleated RBC % Neutrophils # (Manual) Band Neutrophils # Total Absolute Neuts Lymphocytes # (Manual) Prolymphocyte # Reactive Lymphs # Total Abs Lymphocytes Monocytes # (Manual) Eosinophils # (Manual) Basophils # (Manual) Metamyelocytes # (Man) Myelocytes # (Manual) Promyelocytes # (Man) Blast Cells # (Man) Plasma Cell # (Manual) Other Cells # Nucleated RBCs # (Man) Hypersegmented Neuts Hyposegmented Neuts Hypogranular Neuts Large Granular Lymphs # Lrg Granular Lymphs Hairy Cells Smudge Cells Toxic Granulation Toxic Vacuolation Dohle Bodies Susan Rods Hypogranular Platelets Giant Platelets Platelet Satelliting RBC Morphology Polychromasia Hypochromasia Poikilocytosis Basophilic Stippling Anisocytosis Microcytosis Macrocytosis Spherocytes Pappenheimer Bodies Sickle Cells Target Cells Tear Drop Cells Ovalocytes Stomatocytes John-[place] Bodies Echinocytes Acanthocytes (Spur) Rouleaux RBC Agglutinates Schistocytes Sezary Cell PT 10.9 (9.0-12.0) Seconds INR 1.0 (0.9-1.1) APTT 29.2 (21.0-31.0) Seconds PTT Ratio 1.0 Sodium (136-145) mmol/L Potassium (3.5-5.1) mmol/L Chloride (98-107) mmol/L Carbon Dioxide (21-32) mmol/L Anion Gap (3-11) BUN (6-23) mg/dl Creatinine (0.6-1.4) mg/dl Est Cr Clr Drug Dosing ml/min Est GFR ( Amer) ml/min Est GFR (Non-Af Amer) ml/min BUN/Creatinine Ratio (10-20) Glucose (70-99(Fasting)) mg/dl Lactate (0.4-2.0) mmol/L Calcium (8.6-10.3) mg/dl Magnesium (1.7-2.4) mg/dl Total Bilirubin (0.2-1.0) mg/dl AST (13-39) U/L ALT (7-52) U/L Alkaline Phosphatase (34-104) U/L Total Protein (6.0-8.3) gm/dl Albumin (3.4-5.0) gm/dl Globulin (2.5-4.0) gm/dl Albumin/Globulin Ratio (0.9-2) Procalcitonin 0.16 (0-0.5) ng/ml Lyme Disease IgG Ab Negative (Negative) Lyme Disease IgM Ab Negative (Negative) Blood Parasites ID Administered Medications Discontinued Medications Cefepime HCl (Maxipime) 2,000 mg in 20 mls @ 5 mls/min IV NOW STA; Protocol Stop: 10/22/22 14:25 Last Admin: 10/22/22 14:35 Dose: 5 mls/min Documented By: KV Sodium Chloride (Nss 1000ml) 1,000 mls @ 999 mls/hr IV .Q1H1M ONE Stop: 10/22/22 15:25 Last Infusion: 10/22/22 15:45 Dose: 0 mls/hr Documented By: Admin: 10/22/22 14:35 Dose: 999 mls/hr Documented By: KV Imaging Data Radiologist's Impression: Chest X-Ray 10/22/22 11:04 XR chest 1V not portable HISTORY: 41 years-old Male Sepsis acute sepsis COMPARISON: 09/04/2022 TECHNIQUE: PA view of the chest FINDINGS: Cardiomediastinal and hilar silhouettes are unchanged. Left IJ Yfzaer-[id number] catheter. No pneumothorax, pleural effusion, airspace consolidation or pulmonary edema. Bones appear grossly intact. IMPRESSION: No acute process. ACT 112: Negative or not required by law. The above report was generated using voice recognition software. It may contain grammatical, syntax or spelling errors. Electronically signed by: Hima Sesay M.D. 10/22/2022 12:06 PM Discharge Plan Visit Data Chief Complaint: Fever Stated Complaint: NEUTROPENIC FEVER ED Provider: Yogi Rodriguez Discharge Problem: Neutropenia, Anemia, Thrombocytopenia, Fever, Lymphoma, Pharyngitis Patient Disposition: Admitted As Inpatient Condition: Fair Discharge Instructions Interventions: ED Discharge Assessment Last Done: 10/22/22 18:13
[2022-10-22] MEDS ORDERED: CEFEPIME 2,000 MG/20 ML VIAL IV STA (14:22)
[2022-10-22] MEDS ORDERED: SODIUM CHLORIDE 0.9% 1000ML 1,000 ML IV ONE (14:25)
[2022-10-22 14:52] LABS: Appearance Urine Clear (Clear); Bilirubin Urine Negative (Negative); Blood Urine Negative (Negative); Color Urine Dark Yellow; Glucose Urine UA Negative (Negative); Ketones Urine Negative (Negative); Leukocyte Esterase Urine Negative (Negative); Nitrite Urine Negative (Negative); Protein Urine Negative (Negative); Specific Gravity Urine 1.026 (1.000-1.030); Urobilinogen Urine Negative (Negative); pH Urine 6.5 (4.5-7.5)
--- NOTE | 2022-10-22 15:10 | History & Physical Report ---
Date of Service October 22, 2022 Assessment & Plan (1) Neutropenic fever: Plan: LLQ pain yesterday with diarrhea but no current symptoms - if returns advised patient to tell nursing staff and will need CT A/P (no history of diverticulitis) - stool PCR ordered Follow up blood and throat cultures Empiric treatment with IV cefepime (MRSA nasal swab negative) Consult oncology (2) Pancytopenia due to chemotherapy: Plan: Neulasta received as outpatient, no need for further neupogen treatments, unlikely yet reached Jason Neutropenic isolation precautions Continue to trend CBC (3) Pharyngitis: Plan: Follow up rapid strep and throat culture (4) 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 Sore throat for 3 days, worse in the mornings, improves during the day. Not progressively getting worse. Diarrhea for last 3-4 days. Bowel movements only twice a day but more loose. No hematochezia. Abdominal pain last night in left lower quadrant, mild, no radiation, lasted for only minutes, no longer present. He notes chills every night. Fever measured today he reports as - 101 degrees Fahrenheit hence the reason he was [facility]. Last chemotherapy infusion last Friday. Neulasta given appropriately the day following this. He also notes having chemotherapy pills Friday, Friday and but think the medication was a mistake. Ear pain resolved from last admission. Allergies Allergy/AdvReac Type Severity Reaction Status Date / Time No Known Allergies Allergy Verified 10/22/22 16:15 Home Medications Medication Instructions Recorded Confirmed Type albuterol sulfate 90 mcg/actuation 2 puff inhalation QID PRN 10/22/22 10/22/22 History aerosol inhaler Shortness Of Breath Or Wheezing heparin lock flush (porcine) 100 0 unit IV MO 10/22/22 10/22/22 History unit/mL intravenous solution hydroxyzine pamoate 25 mg capsule 25 mg PO BID 10/22/22 10/22/22 History omeprazole 40 mg capsule,delayed 40 mg PO DAILY 10/22/22 10/22/22 History release Past Med/Surg History Medical History Anemia Anxiety disorder, unspecified Constipation History of COVID-19 03/29/2020 History of tobacco use HTN (hypertension) Impetigo ? 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 Pneumonia due to COVID-19 virus Pulmonary embolism 03/2020 Retinal disorder Rhinitis Scabies h/o, no current infection per PA at [facility] Shortness of breath chronic per PA at [facility] SIRS (systemic inflammatory response syndrome) Thrombocytopenia Surgical History Port-A-Cath in place (05/22/22) Insertion of Left Internal Jugular Access Port with Fluoroscopy(Left) - Tim Urban DO, FACS S/P lymph node biopsy (02/21/22) Right Axillary Lymph Node Biopsy with Frozen Section(Right) - Eben Kaufman MD, FACS Social History Smoking Status: Never smoker Tobacco Type: Cigarettes Second Hand Exposure: No; Do You Dip or Chew Tobacco: No; Tobacco Cessation Education Requested by Patient: No Hx Alcohol Use: No Hx Substance Use: No Preferred Language: Khmer Communication Ability: Effective Professor In Family Studies Required: No Beliefs That Will Affect Care: None Current Living Situation: Other Current [facility] Situation Comment: [facility] Other Information That Helps Us Care for You: No Feels Safe at Home: Yes Safety Concerns: Feels Safe At This Time Assistive Devices: None Review of Systems Review of Systems: All systems reviewed & are unremarkable except as noted in HPI & below Physical Exam Constitutional: WD/WN, vitals as above Eyes: PERRL, conjunctivae normal, anicteric sclerae ENMT: Ears: no TM abnormality Mouth: + oropharynx abnormality (erythema, no abscess/swelling) Respiratory: normal respiratory effort, lungs clear to auscultation Cardiovascular: RRR, no murmur, no edema Gastrointestinal (Abdomen): normal bowel sounds, soft, nontender, no hepatosplenomegaly Musculoskeletal: no cyanosis or clubbing, extremities motor strength 5/5 Skin: no rashes, warm and dry Neurologic: moves all extremities and awake; not confused Psychiatric: A+Ox3, euthymic affect Genitourinary: no CVA tenderness Results & Data Results & Data Vital Signs (Past 12 Hours) Vital Signs Temp Pulse Pulse Resp BP Pulse Ox O2 Del Method 10/22/22 14:41 95 H 16 95 Room Air 10/22/22 10:59 36.8 C 98 H 18 134/80 97 Room Air Laboratory Results Abnormal lab results 10/22/22 10/22/22 Range/Units 12:00 12:00 WBC 0.89 L* (4.8-10.8) K/ul RBC 3.93 L (4.70-6.10) M/uL Hgb 12.0 L (14.0-18.0) g/dl Hct 35.3 L (42.0-52.0) % RDW Std Deviation 50.4 H (36.4-46.3) fL RDW Coeff of Efrain 15.3 H (11.5-14.5) % Plt Count 58 L (130-400) K/uL Sodium 135 L (136-145) mmol/L Glucose 100 H (70-99(Fasting)) mg/dl AST 8 L (13-39) U/L Diagnostic Findings XR chest 1V not portable HISTORY: 41 years-old Male Sepsis acute sepsis COMPARISON: 09/04/2022 TECHNIQUE: PA view of the chest FINDINGS: Cardiomediastinal and hilar silhouettes are unchanged. Left IJ Edknua-d-Zefe catheter. No pneumothorax, pleural effusion, airspace consolidation or pulmonary edema. Bones appear grossly intact. IMPRESSION: No acute process. Medications Administered ER Medications Given: NSS 1L bolus Cefepime 2000mg IV ECG Rate (beats per minute): 107 Rhythm: sinus tachycardia Findings: no acute ischemic change Comparison ECG Date: from (September 04, 2022) Change: no significant change Code Status & VTE Plan Code Status Full VTE Prophylaxis Plan VTE Prophylaxis will be ordered: Yes PG Care Time/CCT Total # of Minutes Spent Total Time Spent with Patient: Total time spent is greater than 50% in coordination of care (as documented) at patient's floor/unit and/or counseling patient: Coding Level of Care Code 10305 INT INP/OBS CARE MIN Diagnoses Neutropenic fever D70.9; R50.81 Pancytopenia due to chemotherapy D61.810 Pharyngitis J02.9 Pharyngitis/tonsillitis etiology: unspecified etiology 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
[2022-10-22 15:57] LABS: Adenovirus PCR Not Detected (NotDetected); Bordetella parapertussis PCR Not Detected (NotDetected); Bordetella pertussis PCR Not Detected (NotDetected); Chlamydia pneumoniae PCR Not Detected (NotDetected); Coronavirus 229E PCR Not Detected (NotDetected); Coronavirus CoV-2 (COVID19)PCR Not Detected (NotDetected); Coronavirus HKU1 PCR Not Detected (NotDetected); Coronavirus NL63 PCR Not Detected (NotDetected); Coronavirus OC43PCR Not Detected (NotDetected); Human Metapneumovirus PCR Not Detected (NotDetected); Influenza A PCR Not Detected (NotDetected); Influenza B PCR Not Detected (NotDetected); Mycoplasma pneumoniae PCR Not Detected (NotDetected); Parainfluenza Virus 1 PCR Not Detected (NotDetected); Parainfluenza Virus 2 PCR Not Detected (NotDetected); Parainfluenza Virus 3 PCR Not Detected (NotDetected); Parainfluenza Virus 4 PCR Not Detected (NotDetected); Respiratory Syncytial VirusPCR Not Detected (NotDetected); Rhinovirus/Enterovirus PCR Not Detected (NotDetected)
[2022-10-22] MEDS ORDERED: ACETAMINOPHEN 325 MG TAB PO PRN (18:13)
[2022-10-22] MEDS ORDERED: ALBUTEROL HFA 8 GM INHALER INH PRN (19:53)
[2022-10-22] MEDS: hydrOXYzine HCl 25 MG TAB PO SCH (20:26)
[2022-10-22] MEDS: CEFEPIME 2,000 MG in SYRINGE 0 ML IV SCH (21:31)
[2022-10-23] MEDS: CEFEPIME 2,000 MG in SYRINGE 0 ML IV SCH ×3 (05:50→21:58)
[2022-10-23] MEDS: hydrOXYzine HCl 25 MG TAB PO SCH ×2 (08:28→20:26)
[2022-10-23] MEDS: PANTOprazole 40 MG TAB PO SCH (08:28)
[2022-10-23] MEDS: HEPARIN 100 UNIT/ML 5ML FLUSH FLUSH PRN ×2 (08:32→13:45)
[2022-10-23] MEDS: ENOXAPARIN INJ 40 MG/0.4 ML SYR SQ SCH (08:32)
[2022-10-23 08:58] LABS: Hematocrit (blood only) 32.7 % (42.0-52.0); Hemoglobin 11.2 g/dl (14.0-18.0); Mean Corpuscular Hemoglobin 30.1 pg (25.0-34.0); Mean Corpuscular Hgb Conc 34.3 g/dL (32.0-36.0); Mean Corpuscular Volume 87.9 fL (80.0-100.0); Mean Platelet Volume 10.5 fL (9.4-12.4); Platelet Count 38 K/uL (130-400); RDW Coefficient of Variation 14.9 % (11.5-14.5); Red Blood Count 3.72 M/uL (4.70-6.10); White Blood Count 0.66 K/ul (4.8-10.8)
[2022-10-23 09:11] LABS: Albumin Globulin Ratio 1.2 (0.9-2); Albumin Level 3.4 gm/dl (3.4-5.0); BUN Creatinine Ratio 17.9 (10-20); Calcium 9.1 mg/dl (8.6-10.3); Est GFR (African American) 140.3 ml/min; Globulin 2.9 gm/dl (2.5-4.0); Potassium 4.1 mmol/L (3.5-5.1); Total Protein 6.3 gm/dl (6.0-8.3)
[2022-10-23 09:16] LABS: Basophils # (auto) 0.01 K/uL (0-0.2); Basophils % (auto) 1.5 %; Eosinophils # (auto) 0.05 K/uL (0-0.50); Eosinophils % (auto) 7.6 %; Immature Granulocytes # (auto) 0.01 K/uL (0.01-0.20); Immature Granulocytes % (auto) 1.5 %; Lymphocytes # (auto) 0.55 K/uL (1.2-3.4); Lymphocytes % (auto) 83.3 %; Monocytes # (auto) 0.03 K/uL (0.11-0.59); Monocytes % (auto) 4.5 %; Neutrophils # (auto) 0.01 K/uL (1.40-6.50); Neutrophils % (auto) 1.6 %; Tear Drop Cells 1+
--- NOTE | 2022-10-23 14:22 | Consultation ---
Date of Consultation October 23, 2022 Assessment & Plan (1) Neutropenic fever: Although he had only moderate fever, has been afebrile since he was admitted, and appears completely well he has profound neutropenia (probably exacerbated by the unscheduled dose of a etoposide he received on day 4) in which case any symptoms of a serious infection might be completely masked. Given the degree of neutropenia it is most prudent for him to be treated as an inpatient with intravenous antibiotics until we see clear signs of recovery. In the absence of dramatic symptoms, however, we do not need to routinely include vancomycin but would have a low threshold for adding that if there is any subsequent hemodynamic or clinical instability or if there are positive cultures indicating a gram-positive infection. He did receive Neulasta so additional myeloid growth factors would not be helpful. (2) Lymphoma: Recent imaging suggest an excellent response to chemotherapy thus far. Plan will be to complete 6 cycles and then consider consolidating stem cell transplant potentially to be followed by brentuximab maintenance Plan Standard approach to treat fever pending recovery from most recent cycle of chemotherapy. 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 While this was read as CD30 negative on initial pathology review, there is some question as to whether there may be CD30 positive upon further review at [place]. Patient had widespread adenopathy with some questionable clonal i nvolvement in the bone marrow stage III/IV but with a low-intermediate IPI and intermediate risk T-cell score. He received 4 cycles of CHO EP between 07/31/2022 and 10/14/2022 with an interval admission in August for neutropenic fever, sepsis. Following that he had been receiving Neulasta support for cycles 3 and 4. We do note that with cycle 4 he was getting oral etoposide at the [facility] and apparently was inadvertently given a third and unscheduled day of that above and beyond the standard order protocol He presented to the [facility] yesterday with fever and profound neutropenia and is now admitted for treatment. Overnight he has defervesced and he feels quite well currently Allergies Allergy/AdvReac Type Severity Reaction Status Date / Time No Known Allergies Allergy Verified 10/22/22 16:15 Home Medications Medication Instructions Recorded Confirmed Type albuterol sulfate 90 mcg/actuation 2 puff inhalation QID PRN 10/22/22 10/22/22 History aerosol inhaler Shortness Of Breath Or Wheezing heparin lock flush (porcine) 100 0 unit IV MO 10/22/22 10/22/22 History unit/mL intravenous solution hydroxyzine pamoate 25 mg capsule 25 mg PO BID 10/22/22 10/22/22 History omeprazole 40 mg capsule,delayed 40 mg PO DAILY 10/22/22 10/22/22 History release Patient History Medical History Anemia Anxiety disorder, unspecified Constipation History of COVID-19 03/29/2020 History of tobacco use HTN (hypertension) Impetigo ? 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 Pneumonia due to COVID-19 virus Pulmonary embolism 03/2020 Retinal disorder Rhinitis Scabies h/o, no current infection per PA at [facility] Shortness of breath chronic per PA at [facility] SIRS (systemic inflammatory response syndrome) Thrombocytopenia Surgical History Port-A-Cath in place (05/22/22) Insertion of Left Internal Jugular Access Port with Fluoroscopy(Left) - Tim Urban DO, FACS S/P lymph node biopsy (02/21/22) Right Axillary Lymph Node Biopsy with Frozen Section(Right) - Eben Kaufman MD, FACS Social History Smoking Status: Never smoker Tobacco Type: Cigarettes Second Hand Exposure: No; Do You Dip or Chew Tobacco: No; Hx Alcohol Use: No Hx Substance Use: No Preferred Language: Moldovan Communication Ability: Effective Dianetic Counselor Required: No Beliefs That Will Affect Care: None Current Living Situation: Other Current Living Situation Comment: [facility] Feels Safe at Home: Yes Assistive Devices: None Physical Exam Physical Exam: Vital signs stable, afebrile since admission Alert, cooperative, no acute distress No current pathologic peripheral adenopathy Lungs are clear Cardiac rhythm is regular The abdomen is benign He has no changes in his skin with particular attention to the auricles bilaterally which look stable Results & Data Vital Signs (Past 12 Hours) Vital Signs Temp Pulse Resp BP Pulse Ox O2 Del Method 10/23/22 07:21 36.8 C 106 H 22 91/57 L 94 Room Air Laboratory Results Laboratory Results - last 24 hr 10/22/22 10/22/22 10/22/22 16:07 Unknown Unknown WBC RBC Hgb Hct MCV MCH MCHC RDW Std Deviation RDW Coeff of Efrain Plt Count MPV Immature Gran % (Auto) Neut % (Auto) Lymph % (Auto) [place] % (Auto) Eos % (Auto) Baso % (Auto) Neut # (Auto) Lymph # (Auto) [place] # (Auto) Eos # (Auto) Baso # (Auto) Immature Gran # (Auto) Tear Drop Cells Sodium Potassium Chloride Carbon Dioxide Anion Gap BUN Creatinine Est Cr Clr Drug Dosing Est GFR ( Amer) Est GFR (Non-Af Amer) BUN/Creatinine Ratio Glucose Calcium Total Bilirubin AST ALT Alkaline Phosphatase Total Protein Albumin Globulin Albumin/Globulin Ratio Urine Color Urine Appearance Urine pH Ur Specific [place] Urine Protein Urine Glucose (UA) Urine Ketones Urine Blood Urine Nitrite Urine Bilirubin Urine Urobilinogen Ur Leukocyte Esterase Nasal Screen MRSA (PCR) Negative Adenovirus (PCR) Not Detected B. pertussis DNA (PCR) Not Detected B.parapertussis DNA PCR Not Detected C. pneumoniae DNA (PCR) Not Detected Coronavirus OC43 (PCR) Not Detected Coronavirus HKU1 (PCR) Not Detected Coronavirus 229E (PCR) Not Detected SARS-CoV-2 (PCR) Not Detected Coronavirus NL63 (PCR) Not Detected Human Metapneumovir PCR Not Detected Influenza Type A (PCR) Not Detected Influenza Type B (PCR) Not Detected M. pneumoniae (PCR) Not Detected Parainfluenza 1 (PCR) Not Detected Parainfluenza 2 (PCR) Not Detected Parainfluenza 3 (PCR) Not Detected Parainfluenza 4 (PCR) Not Detected RSV (PCR) Not Detected Entero/Rhino (PCR) Not Detected Group A Strep (PCR) NOT DETECTED 10/22/22 10/23/22 10/23/22 Unknown 06:19 08:28 WBC 0.66 L* RBC 3.72 L Hgb 11.2 L Hct 32.7 L MCV 87.9 MCH 30.1 MCHC 34.3 RDW Std Deviation 48.0 H RDW Coeff of Efrain 14.9 H Plt Count 38 L MPV 10.5 Immature Gran % (Auto) 1.5 Neut % (Auto) 1.6 Lymph % (Auto) 83.3 [place] % (Auto) 4.5 Eos % (Auto) 7.6 Baso % (Auto) 1.5 Neut # (Auto) 0.01 L* Lymph # (Auto) 0.55 L [place] # (Auto) 0.03 L Eos # (Auto) 0.05 Baso # (Auto) 0.01 Immature Gran # (Auto) 0.01 Tear Drop Cells 1+ Sodium Potassium Chloride Carbon Dioxide Anion Gap BUN Creatinine Est Cr Clr Drug Dosing Est GFR ( Amer) Est GFR (Non-Af Amer) BUN/Creatinine Ratio Glucose Calcium Total Bilirubin AST ALT Alkaline Phosphatase Total Protein Albumin Globulin Albumin/Globulin Ratio Urine Color Dark Yellow Urine Appearance Clear Urine pH 6.5 Ur Specific [place] 1.026 Urine Protein Negative Urine Glucose (UA) Negative Urine Ketones Negative Urine Blood Negative Urine Nitrite Negative Urine Bilirubin Negative Urine Urobilinogen Negative Ur Leukocyte Esterase Negative Nasal Screen MRSA (PCR) Negative Adenovirus (PCR) B. pertussis DNA (PCR) B.parapertussis DNA PCR C. pneumoniae DNA (PCR) Coronavirus OC43 (PCR) Coronavirus HKU1 (PCR) Coronavirus 229E (PCR) SARS-CoV-2 (PCR) Coronavirus NL63 (PCR) Human Metapneumovir PCR Influenza Type A (PCR) Influenza Type B (PCR) M. pneumoniae (PCR) Parainfluenza 1 (PCR) Parainfluenza 2 (PCR) Parainfluenza 3 (PCR) Parainfluenza 4 (PCR) RSV (PCR) Entero/Rhino (PCR) Group A Strep (PCR) 10/23/22 08:28 WBC RBC Hgb Hct MCV MCH MCHC RDW Std Deviation RDW Coeff of Efrain Plt Count MPV Immature Gran % (Auto) Neut % (Auto) Lymph % (Auto) [place] % (Auto) Eos % (Auto) Baso % (Auto) Neut # (Auto) Lymph # (Auto) [place] # (Auto) Eos # (Auto) Baso # (Auto) Immature Gran # (Auto) Tear Drop Cells Sodium 134 L Potassium 4.1 Chloride 102 Carbon Dioxide 27 Anion Gap 5 BUN 12 Creatinine 0.67 Est Cr Clr Drug Dosing 212.0 Est GFR ( Amer) 140.3 Est GFR (Non-Af Amer) 121.0 BUN/Creatinine Ratio 17.9 Glucose 124 H Calcium 9.1 Total Bilirubin 1.0 AST 7 L ALT 13 Alkaline Phosphatase 52 Total Protein 6.3 Albumin 3.4 Globulin 2.9 Albumin/Globulin Ratio 1.2 Urine Color Urine Appearance Urine pH Ur Specific [place] Urine Protein Urine Glucose (UA) Urine Ketones Urine Blood Urine Nitrite Urine Bilirubin Urine Urobilinogen Ur Leukocyte Esterase Nasal Screen MRSA (PCR) Adenovirus (PCR) B. pertussis DNA (PCR) B.parapertussis DNA PCR C. pneumoniae DNA (PCR) Coronavirus OC43 (PCR) Coronavirus HKU1 (PCR) Coronavirus 229E (PCR) SARS-CoV-2 (PCR) Coronavirus NL63 (PCR) Human Metapneumovir PCR Influenza Type A (PCR) Influenza Type B (PCR) M. pneumoniae (PCR) Parainfluenza 1 (PCR) Parainfluenza 2 (PCR) Parainfluenza 3 (PCR) Parainfluenza 4 (PCR) RSV (PCR) Entero/Rhino (PCR) Group A Strep (PCR) Diagnostic Findings Chest X-Ray 10/22/22 11:04 XR chest 1V not portable HISTORY: 41 years-old Male Sepsis acute sepsis COMPARISON: 09/04/2022 TECHNIQUE: PA view of the chest FINDINGS: Cardiomediastinal and hilar silhouettes are unchanged. Left IJ [id number] catheter. No pneumothorax, pleural effusion, airspace consolidation or pulmonary edema. Bones appear grossly intact. IMPRESSION: No acute process. ACT 112: Negative or not required by law. The above report was generated using voice recognition software. It may contain grammatical, syntax or spelling errors. Electronically signed by: Hima Sesay M.D. 10/22/2022 12:06 PM PG Care Time/CCT Total # of Minutes Spent Total Time Spent with Patient: Total time spent is greater than 50% in coordination of care (as documented) at patient's floor/unit and/or counseling patient: Coding Level of Care Code 32023 IN/OBS CONSULT LVL 2,35M Diagnoses Neutropenic fever D70.9; R50.81 Lymphoma C85.90 Lymphoma site: unspecified region Lymphoma type: unspecified type (2) Lymphoma Lymphoma site: unspecified region Lymphoma type: unspecified type Qualified Code(s): C85.90 - Non-Hodgkin lymphoma, unspecified, unspecified site
[2022-10-24] MEDS: CEFEPIME 2,000 MG in SYRINGE 0 ML IV SCH ×2 (05:51→13:57)
--- NOTE | 2022-10-24 06:12 | Electrocardiogram Report ---
Test Reason : Blood Pressure : / mmHG Vent. Rate : 107 BPM Atrial Rate : 107 BPM P-R Int : 140 ms QRS Dur : 078 ms QT Int : 322 ms P-R-T Axes : 029 035 000 degrees QTc Int : 429 ms Sinus tachycardia with occasional Premature atrial complexes Otherwise normal ECG When compared with ECG of 04-SEP-2022 00:08, Premature atrial complexes are now Present Confirmed by Quinn Carrillo ([id number]) on 10/24/2022 6:12:42 AM Referred By: Confirmed By:Quinn Carrillo
[2022-10-24 07:07] LABS: Hematocrit (blood only) 31.3 % (42.0-52.0); Hemoglobin 10.7 g/dl (14.0-18.0); Mean Corpuscular Hemoglobin 30.5 pg (25.0-34.0); Mean Corpuscular Hgb Conc 34.2 g/dL (32.0-36.0); Mean Corpuscular Volume 89.2 fL (80.0-100.0); Platelet Count 25 K/uL (130-400); RDW Coefficient of Variation 14.6 % (11.5-14.5); RDW Standard Deviation 47.8 fL (36.4-46.3); Red Blood Count 3.51 M/uL (4.70-6.10)
[2022-10-24 07:08] LABS: Basophils # (auto) 0.01 K/uL (0-0.2); Basophils % (auto) 1.4 %; Eosinophils # (auto) 0.04 K/uL (0-0.50); Eosinophils % (auto) 5.7 %; Immature Granulocytes # (auto) 0.03 K/uL (0.01-0.20); Immature Granulocytes % (auto) 4.3 %; Lymphocytes # (auto) 0.56 K/uL (1.2-3.4); Monocytes # (auto) 0.04 K/uL (0.11-0.59); Monocytes % (auto) 5.7 %; Neutrophils # (auto) 0.02 K/uL (1.40-6.50); Neutrophils % (auto) 2.9 %
[2022-10-24 07:10] LABS: Dohle Bodies 1+; Tear Drop Cells 1+
[2022-10-24] MEDS: PANTOprazole 40 MG TAB PO SCH (08:29)
[2022-10-24] MEDS: ENOXAPARIN INJ 40 MG/0.4 ML SYR SQ SCH (08:29)
[2022-10-24] MEDS: hydrOXYzine HCl 25 MG TAB PO SCH ×2 (08:29→20:28)
--- NOTE | 2022-10-24 10:41 | Hospitalist Progress Note ---
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 Physical Exam Physical Exam: The patient is awake, alert and oriented 3, well developed and well nourished, normocephalic and atraumatic, lying in bed and in no acute distress. HEENT--PERRL, EOMI, mucous membranes and oropharynx mildly dry Neck--supple. No JVD. No bruits. Thyroid normal, trachea midline, no adenopathy. Heart--normal S1 and S2. No murmurs, rubs or gallops. Lungs--clear bilaterally, no respiratory distress, no accessory muscle use. Abdomen--normal bowel sounds and soft. Mild epigastric and left sided abdominal pain Extremities--no cyanosis or clubbing. No edema. Dermatologic--normal skin turgor, normal color, no abnormal lymph nodes, no rash. Neurologic--cranial nerves II through XII grossly intact. Rheumatologic--normal range of motion. Psychiatric--normal affect. 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
--- NOTE | 2022-10-24 11:20 | Hospitalist Progress Note ---
Date of Service October 24, 2022 Assessment & Plan (1) Neutropenic fever: Plan: Presented to the hospital with LLQ pain and diarrhea which started the day prior to presentation. Found to be neutropenic, with low-grade fever Empiric treatment with IV cefepime (MRSA nasal swab negative) Has been evaluated by oncology, will continue IV cefepime for now until his counts recover (2) Pancytopenia due to chemotherapy: Plan: Neulasta received as outpatient, no need for further neupogen treatments, unlikely yet reached Jason Neutropenic isolation precautions Continue to trend CBC (3) Pharyngitis: Plan: Negative strep and throat culture for now. 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 Physical Exam Physical Exam: The patient is awake, alert and oriented 3, well developed and well nourished, normocephalic and atraumatic, lying in bed and in no acute distress. HEENT--PERRL, EOMI, mucous membranes and oropharynx mildly dry Neck--supple. No JVD. No bruits. Thyroid normal, trachea midline, no adenopathy. Heart--normal S1 and S2. No murmurs, rubs or gallops. Lungs--clear bilaterally, no respiratory distress, no accessory muscle use. Abdomen--normal bowel sounds and soft. Mild epigastric and left sided abdominal pain Extremities--no cyanosis or clubbing. No edema. Dermatologic--normal skin turgor, normal color, no abnormal lymph nodes, no rash. Neurologic--cranial nerves II through XII grossly intact. Rheumatologic--normal range of motion. Psychiatric--normal affect. 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
--- NOTE | 2022-10-25 07:53 | Hospitalist Progress Note ---
Date of Service October 25, 2022 Assessment & Plan (1) Pancytopenia due to chemotherapy: Plan: Really christelle profoundly neutropenic and moderately thrombocytopenic though hemoglobin is stable. Unless he develops hemostasis issues, platelets are adequate. Would consider transfusion support for platelet counts less than 10,000. Any bleeding issues would push that threshold higher It was unlikely that he would need packed red cells but would certainly consider that for hemoglobin less than 7 g/dL Which media is a problematic issue. Because he got the extra dose of etoposide that may be deeper and more prolonged. Certainly that puts him at risk for serious infections for which he may not show symptoms and even if he did not have 1 on admission he remains at ongoing risk even from endogenous bacteria of a new infection developing so long as the counts are low. He already has Neulasta on board so additional myeloid growth factors would not necessarily impact his situation or recovery. Given the challenging environment of incarceration, I think it would be more prudent to monitor him until we see that there is a clear rise in neutrophils to the 500/mcL or greater level. Plan We will continue to monitor as above Admission and Anticipated Discharge Date Admission Date: October 22, 2022 Subjective Clinically quite stable. No further fever, no major new focal symptoms Physical Exam Physical Exam: Afebrile, vital signs stable. Lung cardiac and abdominal exams completely stable, no new skin rash Results & Data Results & Data Vital Signs (Past 12 Hours) Vital Signs Temp Pulse Resp BP Pulse Ox O2 Del Method 10/25/22 07:38 36.6 C 93 H 16 110/70 93 Room Air 10/24/22 20:26 36.7 C 96 H 16 121/84 96 Room Air PG Care Time/CCT Total # of Minutes Spent Total Time Spent with Patient: Total time spent is greater than 50% in coordination of care (as documented) at patient's floor/unit and/or counseling patient: Coding Level of Care Code 64499 SUB INP/OBS CARE 04/17MIN Diagnoses Pancytopenia due to chemotherapy D61.810
[2022-10-25] MEDS: hydrOXYzine HCl 25 MG TAB PO SCH ×2 (08:49→19:31)
[2022-10-25] MEDS: PANTOprazole 40 MG TAB PO SCH (08:52)
[2022-10-25 08:55] LABS: Hematocrit (blood only) 30.7 % (42.0-52.0); Hemoglobin 10.5 g/dl (14.0-18.0); Mean Corpuscular Hemoglobin 30.1 pg (25.0-34.0); Mean Corpuscular Hgb Conc 34.2 g/dL (32.0-36.0); Platelet Count 17 K/uL (130-400); RDW Coefficient of Variation 14.4 % (11.5-14.5); RDW Standard Deviation 46.3 fL (36.4-46.3); Red Blood Count 3.49 M/uL (4.70-6.10)
[2022-10-25 08:59] LABS: Dohle Bodies 1+; Tear Drop Cells 1+
[2022-10-25 09:00] LABS: Basophils # (auto) 0.02 K/uL (0-0.2); Basophils % (auto) 1.8 %; Eosinophils # (auto) 0.06 K/uL (0-0.50); Eosinophils % (auto) 5.5 %; Lymphocytes # (auto) 0.64 K/uL (1.2-3.4); Lymphocytes % (auto) 58.2 %; Monocytes % (auto) 9.1 %; Neutrophils # (auto) 0.28 K/uL (1.40-6.50); Neutrophils % (auto) 25.4 %
--- NOTE | 2022-10-25 11:27 | Hospitalist Progress Note ---
Date of Service October 25, 2022 Assessment & Plan (1) Neutropenic fever: Plan: Presented to the hospital with LLQ pain and diarrhea which started the day prior to presentation. Found to be neutropenic, with low-grade fever Empiric treatment with IV cefepime (MRSA nasal swab negative) Has been evaluated by oncology, will continue IV cefepime for now until his counts recover Some improvement in WBC however platelet counts dropped from 25 yesterday to 17 Continue IV cefepime until ANC improves above 500 (2) Pancytopenia due to chemotherapy: Plan: Neulasta received as outpatient, no need for further neupogen treatments, unlikely yet reached Jason Neutropenic isolation precautions Continue to trend CBC Per oncology, transfuse platelets when it drops below 10 or if there is any bleeding or petechia, transfuse blood when hemoglobin drops below 7 (3) Pharyngitis: Plan: Negative strep and throat culture for now. 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 Physical Exam Physical Exam: The patient is awake, alert and oriented 3, well developed and well nourished, normocephalic and atraumatic, lying in bed and in no acute distress. HEENT--PERRL, EOMI, mucous membranes and oropharynx mildly dry Neck--supple. No JVD. No bruits. Thyroid normal, trachea midline, no adeno rm. Heart--normal S1 and S2. No murmurs, rubs or gallops. Lungs--clear bilaterally, no respiratory distress, no accessory muscle use. Abdomen--normal bowel sounds and soft. Mild epigastric and left sided abdominal pain Extremities--no cyanosis or clubbing. No edema. Dermatologic--normal skin turgor, normal color, no abnormal lymph nodes, no rash. Neurologic--cranial nerves II through XII grossly intact. Rheumatologic--normal range of motion. Psychiatric--normal affect. 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
[2022-10-25] MEDS: CEFEPIME 2,000 MG in SYRINGE 0 ML IV SCH ×2 (12:26→19:31)
[2022-10-25] MEDS: POLYETHYLENE (MIRALAX) 17 GM PACK PO PRN (16:20)
[2022-10-26] MEDS: CEFEPIME 2,000 MG in SYRINGE 0 ML IV SCH ×2 (04:15→12:11)
[2022-10-26] MEDS: HEPARIN 100 UNIT/ML 5ML FLUSH FLUSH PRN ×2 (04:15→12:12)
--- NOTE | 2022-10-26 08:19 | Hospitalist Progress Note ---
Date of Service October 26, 2022 Assessment & Plan (1) Neutropenic fever: Plan: Presented to the hospital with LLQ pain and diarrhea which started the day prior to presentation. Found to be neutropenic, with low-grade fever may have been typhlitis Empiric treatment with IV cefepime (MRSA nasal swab negative) Has been evaluated by oncology, counts are now recovered antibiotics will be stopped Caution still with thrombocytopenia for bruising (2) Pancytopenia due to chemotherapy: Plan: Diagnosed with peripheral T-cell lymphoma and has been responding well to chemotherapy Neulasta received as outpatient, no need for further neupogen treatments, unlikely yet reached Jason (3) Pharyngitis: Plan: Negative strep and throat culture for now. Symptoms of such resolve (4) Anxiety disorder, unspecified: Plan: Continue hydroxyzine Plan Did call [facility] spoke to on-call provider excepted patient to return to [facility] Admission and Anticipated Discharge Date Admission Date: October 22, 2022 Subjective Patient is negative review of systems he may have some small petechiae otherwise no new complaints or issues Physical Exam Physical Exam: Awake alert and appropriate cardiac exam is regular lungs are clear abdomen NABS soft nontender extremities are without edema Results & Data Results & Data Vital Signs (Past 12 Hours) Vital Signs Temp Pulse Resp BP Pulse Ox O2 Del Method 10/26/22 07:28 97.7 F 88 15 112/78 97 Room Air 10/25/22 20:35 98.1 F 101 H 20 128/83 98 Room Air PG Care Time/CCT Total # of Minutes Spent Total Time Spent with Patient: Total time spent is greater than 50% in coordination of care (as documented) at patient's floor/unit and/or counseling patient: Coding Diagnoses Neutropenic fever D70.9; R50.81 Pancytopenia due to chemotherapy D61.810 Pharyngitis J02.9 Pharyngitis/tonsillitis etiology: unspecified etiology Anxiety disorder, unspecified F41.9 (3) Pharyngitis Pharyngitis/tonsillitis etiology: unspecified etiology Qualified Code(s): J02.9 - Acute pharyngitis, unspecified
[2022-10-26 08:21] LABS: Basophils # (auto) 0.03 K/uL (0-0.2); Basophils % (auto) 1.2 %; Eosinophils % (auto) 4.1 %; Hematocrit (blood only) 31.2 % (42.0-52.0); Hemoglobin 10.7 g/dl (14.0-18.0); Immature Granulocytes # (auto) 0.03 K/uL (0.01-0.20); Immature Granulocytes % (auto) 1.2 %; Lymphocytes # (auto) 0.88 K/uL (1.2-3.4); Lymphocytes % (auto) 36.4 %; Mean Corpuscular Hemoglobin 30.4 pg (25.0-34.0); Mean Corpuscular Hgb Conc 34.3 g/dL (32.0-36.0); Mean Corpuscular Volume 88.6 fL (80.0-100.0); Monocytes % (auto) 8.3 %; Neutrophils # (auto) 1.18 K/uL (1.40-6.50); Neutrophils % (auto) 48.8 %; Polychromasia 1+; RDW Coefficient of Variation 14.4 % (11.5-14.5); RDW Standard Deviation 46.5 fL (36.4-46.3); Red Blood Count 3.52 M/uL (4.70-6.10); Tear Drop Cells 1+; Toxic Granulation 1+; White Blood Count 2.42 K/ul (4.8-10.8)
[2022-10-26 08:22] LABS: Platelet Count 20 K/uL (130-400)
[2022-10-26] MEDS: PANTOprazole 40 MG TAB PO SCH (09:03)
[2022-10-26] MEDS: hydrOXYzine HCl 25 MG TAB PO SCH (09:03)
[2022-10-26] MEDS: POLYETHYLENE (MIRALAX) 17 GM PACK PO PRN (09:04)
--- NOTE | 2022-10-26 16:27 | Discharge Summary ---
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 Sore throat for 3 days, worse in the mornings, improves during the day. Not progressively getting worse. Diarrhea for last 3-4 days. Bowel movements only twice a day but more loose. No hematochezia. Abdominal pain last night in left lower quadrant, mild, no radiation, lasted for only minutes, no longer present. He notes chills every night. Fever measured today he reports as - 101 degrees Fahrenheit hence the reason he was sent in by the senior living. Last chemotherapy infusion last Friday. Wallace lasta given appropriately the day following this. He also notes having chemotherapy pills Friday, Friday and but think the medication was a mistake. Ear pain resolved from last admission. Principal Diagnosis Neutropenic fever and possible typhlitis Chemotherapy induced pancytopenia Treatment for T-cell lymphoma Discharge Exam Awake alert and appropriate cardiac exam is regular lungs are clear abdomen NABS soft nontender extremities are without edema Discharge Data Allergies Allergy/AdvReac Type Severity Reaction Status Date / Time No Known Allergies Allergy Verified 10/22/22 16:15 Consultations 10/22/22 14:31 ED Decision to Admit Stat 10/22/22 18:13 Consult Oncology Routine Hospital Course (1) Neutropenic fever: Presented to the hospital with LLQ pain and diarrhea which started the day prior to presentation. Found to be neutropenic, with low-grade fever may have been typhlitis Empiric treatment with IV cefepime (MRSA nasal swab negative) Has been evaluated by oncology, counts are now recovered antibiotics will be stopped Caution still with thrombocytopenia for bruising (2) Pancytopenia due to chemotherapy: Diagnosed with peripheral T-cell lymphoma and has been responding well to chemotherapy Neulasta received as outpatient, no need for further neupogen treatments, unlikely yet reached Jason (3) Pharyngitis: Negative strep and throat culture for now. Symptoms of such resolve (4) Anxiety disorder, unspecified: Continue hydroxyzine Plan Did call [facility] spoke to on-call provider excepted patient to return to [facility] Total Time Total Time Spent Total Time Spent (In Minutes): It required greater than 30 minutes to prepare this patient for discharge Discharge Plan Discharge Items [facility]position[facility] Reason For Visit: NEUTROPENIC FEVER, SORE THROAT Discharge Diagnosis: neutropenic fever -resolved neutropenia resolved anemia thrombocytopenia Condition on Discharge: Fair Activity: Resume your previous activity Non-emergency contact: Primary Care Provider and Oncologist Call non-emergency contact if: your symptoms worsen Follow-up/Referrals: Aide VILLEGAS [Primary Care Provider] - Diet: Regular Addtl Attending Provider Instructions: although your blood counts are improved, please continue to pay attention to any new symptoms you may develop you still have lower platelet count and are at risk to develop some bruising or red dots (petechae) until this part of your blood count improved Pending Studies at Discharge: No Stand-Alone Forms: My [facility] Skilled Items Patient informed of condition?: Yes Discharge Level of Care: Other Communicable Disease: No Discharge Prognosis: Stable Lines: None Urinary Catheter: No Medications and DC Order Prescriptions: Continued omeprazole 40 mg Capsule,Delayed Release(Dr/Ec) 40 mg PO DAILY albuterol sulfate 90 mcg/actuation Hfa Aerosol Inhaler 2 puff INHALATION QID PRN (Reason: Shortness Of Breath Or Wheezing) hydroxyzine pamoate 25 mg Capsule 25 mg PO BID heparin lock flush (porcine) 100 unit/mL Solution 0 unit IV MO Rx Instructions: administer after IV drug administration as part of [facility] protocol Discharge Orders: Discharge Order (Routine); Ordered 10/26/22 Ordered By: Esau Langley Admission Data Admit Date/Time: 10/22/22 14:40 Attending Provider: Esau Langley Admit Provider: Manuel Kilpatrick Primary Care Provider: Aide VILLEGAS Other Providers: Manuel Kilpatrick ; Pedro Luis Taylor Other Interventions: Discharge Summary Assessment (RN) Last Done: 10/26/22 12:04 Coding Level of Care Code 98055 INP/OBS DISCH >30 MIN Diagnoses Neutropenic fever D70.9; R50.81 Pancytopenia due to chemotherapy D61.810 Pharyngitis J02.9 Pharyngitis/tonsillitis etiology: unspecified etiology Anxiety disorder, unspecified F41.9
== END 2022-10-26 14:43 | DRG 917 ==
LOC: ED 10:55 → SUATTDRO 14:40 → EDINP 14:40 → 3W 20:29

== ENCOUNTER 2022-11-08 23:42 | Inpatient (IN) ==
[2022-11-09] MEDS ORDERED: SODIUM CHLORIDE 0.9% 1000ML 1,000 ML IV STA (00:11)
[2022-11-09] MEDS ORDERED: dilTIAZem HCl 5 MG/ML 5 ML VIAL IV STA ×2 (00:11→01:22)
[2022-11-09] MEDS ORDERED: STAT IV Infusion **Titration per Protocol STA (00:11)
[2022-11-09] MEDS: dilTIAZem HCL 125 MG in DEXTROSE 5% 100 ML IV SCH ×2 (00:38→08:00)
[2022-11-09 01:39] LABS: Partial Thromboplastin Ratio 0.8; Partial Thromboplastin Time 22.1 Seconds (21.0-31.0); Prothrombin Time 10.8 Seconds (9.0-12.0)
[2022-11-09 01:40] LABS: Albumin Globulin Ratio 1.3 (0.9-2); Albumin Level 3.9 gm/dl (3.4-5.0); BUN Creatinine Ratio 23.4 (10-20); Bilirubin,Total 0.5 mg/dl (0.2-1.0); Calcium 8.8 mg/dl (8.6-10.3); Creatinine Clr Calc Pharmacy 227.6 ml/min; Est GFR (African American) 142.9 ml/min; Est GFR (Non-African American) 123.3 ml/min; Globulin 2.9 gm/dl (2.5-4.0); Magnesium 2.2 mg/dl (1.7-2.4); Potassium 3.7 mmol/L (3.5-5.1); Total Protein 6.8 gm/dl (6.0-8.3)
[2022-11-09] MEDS ORDERED: POTASSIUM CHLORIDE / WTR 10 MEQ/100 ML PLCT IV ONE (01:43)
[2022-11-09 01:46] LABS: ALC (manual) 0.86 K/uL (1.2-3.4); ANC (manual) 20.63 K/uL (1.4-6.5); Hematocrit (blood only) 34.5 % (42.0-52.0); Hemoglobin 11.8 g/dl (14.0-18.0); Lymphocytes # (manual) 0.86 K/uL (1.2-3.4); Lymphocytes % (manual) 4 %; Mean Corpuscular Hemoglobin 31.3 pg (25.0-34.0); Mean Corpuscular Hgb Conc 34.2 g/dL (32.0-36.0); Mean Corpuscular Volume 91.5 fL (80.0-100.0); Neutrophils # (manual) 20.63 K/uL (1.40-6.50); Neutrophils % (manual) 96 %; Platelet Count 264 K/uL (130-400); RDW Coefficient of Variation 17.2 % (11.5-14.5); RDW Standard Deviation 57.8 fL (36.4-46.3); Red Blood Count 3.77 M/uL (4.70-6.10); Troponin I High Sensitivity 32.9 pg/ml (0-20); White Blood Count 21.49 K/ul (4.8-10.8)
--- NOTE | 2022-11-09 01:48 | Emergency Department Note ---
Impression & Plan Atrial fibrillation with rapid ventricular response ED Provider Note INFORMANT: Patient ED PROVIDER(S): Ted Adams MD CHIEF COMPLAINT: Palpitations PLAN: Disposition: Admitted Condition: Good Outpatient prescription management: none Referral: None MEDICAL DECISION MAKING: [Patient presented because of rapid atrial fibrillation. This is new onset for the patient. He was extremely tachycardic but doing well as far as mental status, symptoms, and blood pressure. Mediport was accessed. Labs were obtained. Patient was hydrated and started on a Cardizem drip. He did receive a bolus. He did require second bolus and increase titration of his drip. Potassium is within normal limits although mildly low. Patient was given IV potassium. Magnesium normal. Remainder of chemistries unremarkable. Further management in the hospital will be necessary. Consultation was made with Dr. Magnus Mercado of the [facility] service. Patient was evaluated in the ER for further management. Discussed with material manager After review of the information above and other included data, I feel the patient requires admission. Triage Nursing notes reviewed and agree them. Vital Signs: reviewed and remarkable for tachycardia Prior /Outside records reviewed: Prior hospitalization record reviewed. Patient did receive Neulasta as an outpatient. Differential diagnosis: Premature contractions, electrolyte abnormality, cardiac dysrhythmia, thyroid dysfunction, pulmonary embolism, infection, gastrointestinal, as well as other pathologies. Diagnostics, as interpreted by me: ECG: Twelve-lead ECG reveals atrial fibrillation with rapid ventricular response at 178 bpm. Inferior TWI. When compared to 10/22/2022 atrial fibrillation has replaced sinus rhythm Cardiac Monitoring: Cardiac monitoring ordered by me: The patient was placed on continuous cardiac monitoring and observed. It revealed atrial fibrillation at 113 bpm. Medical decision rules: none Imaging studies: Chest x-ray. Findings: A chest x-ray was performed and revealed no pneumothorax, effusion, infiltrate, pulmonary edema, free air under the diaphragm, or wide mediastinum. Impression: No acute disease. HPI: The patient is a 41year old with a past medical history of T-cell lymphoma who presents to the Emergency Room with complaints of palpitations and rapid heartbeat. Patient is currently incarcerated and [facility] noted that he had tachycardia and an ECG was concerning for rapid atrial fibrillation. This started earlier this evening and is new onset for the patient. No prior cardiac history per the patient. The patient also notes the following associated symptoms, minimal shortness of breath. The patient has been given no medication for relieving factors. Current pain is rated as 0/10. Pt denies LOC, headache, fevers, chills, diaphoresis, visual changes, neck pain, chest pain, nausea, vomiting, abdominal pain, back pain, melena, hematochezia, urinary symptoms, numbness, weakness, lymphadenopathy, rash, or other complaints. PAST MEDICAL HISTORY: See Below, lymphoma PAST SURGICAL HISTORY: See Below, Mediport SOCIAL HISTORY: See Below, incarcerated HOME MEDICATIONS: See Below ALLERGIES: See Below VITALS: See Below PHYSICAL EXAMINATION: GENERAL: Awake, alert, nontoxic-appearing, in no distress HENT: Normocephalic, atraumatic. Oropharynx unremarkable. EYES: Normal conjunctiva. Sclera non-icteric. NECK: Inspection normal. Non-tender. Supple. No nuchal rigidity. FROM. No masses. RESPIRATORY: Clear to auscultation. No wheezes. No rales. Normal respiratory effort. CARDIAC: Tachycardic rate. Irregular rhythm. No murmurs. No rubs. Extremities warm and well perfused. Pulses equal. No JVD. GI: Soft, non-distended. No tenderness to palpation. No rebound or guarding. No masses. RECTAL: Deferred. MUSCULOSKELETAL: Atraumatic. Chest examination reveals no tenderness. The back is symmetrical on inspection without obvious abnormality. There is no CVA tende rness to palpation. No joint edema. LOWER EXTREMITIES: Calves are equal size bilaterally and non-tender. No edema. No discoloration. NEURO: Normal sensorium. No sensory or motor deficits noted. SKIN: No rash or jaundice noted. CRITICAL CARE: I have personally spent 35 minutes of critical care time in the direct management of this patient. This includes bedside care, interpretation of diagnostic studies, and testing, discussion with consultants, patient, and guards, and other required patient management activities. These minutes are in excess of all separately billable procedures. Past Med/Surg History Medical History (Updated 11/09/22 @ 02:41 by Magnus Mercado MD) Anemia Anxiety disorder, unspecified Constipation GERD (gastroesophageal reflux disease) History of COVID-19 03/29/2020 History of tobacco use HTN (hypertension) Impetigo ? 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 Pneumonia due to COVID-19 virus Pulmonary embolism 03/2020 Retinal disorder Rhinitis Scabies h/o, no current infection per PA at [facility] Shortness of breath chronic per PA at [facility] SIRS (systemic inflammatory response syndrome) Thrombocytopenia Surgical History Port-A-Cath in place (05/22/22) Insertion of Left Internal Jugular Access Port with Fluoroscopy(Left) - Tim Urban DO, FACS S/P lymph node biopsy (02/21/22) Right Axillary Lymph Node Biopsy with Frozen Section(Right) - Eben Kaufman MD, FACS Social History Smoking Status: Never smoker Tobacco Type: Cigarettes Second Hand Exposure: No; Do You Dip or Chew Tobacco: No; Hx Alcohol Use: No Hx Substance Use: No Preferred Language: Telugu Communication Ability: Effective [employer] Required: No Beliefs That Will Affect Care: None Current Living Situation: Other Current Living Situation Comment: longterm Feels Safe at Home: Yes Assistive Devices: None Allergies Allergies Allergy/AdvReac Type Severity Reaction Status Date / Time No Known Allergies Allergy Verified 11/09/22 02:27 Home Meds Home Medications Medication Instructions Recorded Confirmed albuterol sulfate 90 mcg/actuation 2 puff inhalation QID PRN 10/22/22 11/09/22 aerosol inhaler Shortness Of Breath Or Wheezing heparin lock flush (porcine) 100 0 unit IV MO 10/22/22 11/09/22 unit/mL intravenous solution hydroxyzine pamoate 25 mg capsule 25 mg PO BID 10/22/22 11/09/22 docusate sodium 100 mg capsule 100 mg PO BID 11/09/22 11/09/22 lactulose 10 gram/15 mL oral 15 g PO DAILY PRN Constipation 11/09/22 11/09/22 solution pantoprazole 40 mg tablet,delayed 40 mg PO BID 11/09/22 11/09/22 release prochlorperazine maleate 10 mg 10 mg PO QID PRN Nausea 11/09/22 11/09/22 tablet Results & Data (ED) Vital Signs Vital Signs - 24 hr 11/08/22 23:50 11/09/22 00:12 11/09/22 00:31 Temperature 36.9 C Temperature Source Oral Pulse Rate 97 H Pulse Rate [Apical] 179 H 136 H Pulse Rhythm Regular Pulse Strength Normal Respiratory Rate 18 24 23 Respiratory Effort / Characteristics Non-Labored Spontaneous Respiratory Depth Normal Respiratory Pattern Regular Blood Pressure 132/80 Blood Pressure [Left Arm] 119/77 118/70 Blood Pressure Mean 97 Blood Pressure Mean [Left Arm] 91 86 Blood Pressure Position Sitting Pulse Oximetry 96 96 95 Oxygen Delivery Method Room Air Room Air Sepsis Recent Fever Within 48 Hours No Sepsis New/Unexplained Change in Mental Status No Sepsis Action Taken by Nursing No Action Required 11/09/22 00:12 11/09/22 01:00 11/09/22 01:31 Temperature Temperature Source Pulse Rate 181 H Pulse Rate [Apical] 127 H 128 H Pulse Rhythm Pulse Strength Respiratory Rate 23 20 Respiratory Effort / Characteristics Respiratory Depth Respiratory Pattern Blood Pressure Blood Pressure [Left Arm] 114/85 137/94 Blood Pressure Mean Blood Pressure Mean [Left Arm] 94 108 Blood Pressure Position Pulse Oximetry 99 96 Oxygen Delivery Method Room Air Room Air Sepsis Recent Fever Within 48 Hours Sepsis New/Unexplained Change in Mental Status Sepsis Action Taken by Nursing 11/09/22 02:33 11/09/22 03:00 Temperature Temperature Source Pulse Rate Pulse Rate [Apical] 156 H 113 H Pulse Rhythm Pulse Strength Respiratory Rate 22 16 Respiratory Effort / Characteristics Respiratory Depth Respiratory Pattern Blood Pressure Blood Pressure [Left Arm] 149/75 H 149/114 H Blood Pressure Mean Blood Pressure Mean [Left Arm] 99 125 Blood Pressure Position Pulse Oximetry 97 96 Oxygen Delivery Method Room Air Sepsis Recent Fever Within 48 Hours Sepsis New/Unexplained Change in Mental Status Sepsis Action Taken by Nursing Laboratory Data 11/09/22 00:34 11/09/22 00:34 Lab Results 11/09/22 11/09/22 11/09/22 Range/Units 00:34 00:34 00:34 WBC 21.49 H (4.8-10.8) K/ul RBC 3.77 L (4.70-6.10) M/uL Hgb 11.8 L (14.0-18.0) g/dl Hct 34.5 L (42.0-52.0) % MCV 91.5 (80.0-100.0) fL MCH 31.3 (25.0-34.0) pg MCHC 34.2 (32.0-36.0) g/dL RDW Std Deviation 57.8 H (36.4-46.3) fL RDW Coeff of Efrain 17.2 H (11.5-14.5) % Plt Count 264 (130-400) K/uL MPV 10.0 (9.4-12.4) fL Neutrophils % (Manual) 96 % Lymphocytes % (Manual) 4 % Neutrophils # (Manual) 20.63 H (1.40-6.50) K/uL Total Absolute Neuts 20.63 H (1.4-6.5) K/uL Lymphocytes # (Manual) 0.86 L (1.2-3.4) K/uL Total Abs Lymphocytes 0.86 L (1.2-3.4) K/uL PT 10.8 (9.0-12.0) Seconds INR 1.0 (0.9-1.1) APTT 22.1 (21.0-31.0) Seconds PTT Ratio 0.8 Sodium 140 (136-145) mmol/L Potassium 3.7 (3.5-5.1) mmol/L Chloride 109 H (98-107) mmol/L Carbon Dioxide 25 (21-32) mmol/L Anion Gap 6 (3-11) BUN 15 (6-23) mg/dl Creatinine 0.64 (0.6-1.4) mg/dl Est Cr Clr Drug Dosing 227.6 ml/min Est GFR ( Amer) 142.9 ml/min Est GFR (Non-Af Amer) 123.3 ml/min BUN/Creatinine Ratio 23.4 H (10-20) Glucose 168 H (70-99(Fasting)) mg/dl Calcium 8.8 (8.6-10.3) mg/dl Magnesium 2.2 (1.7-2.4) mg/dl Total Bilirubin 0.5 (0.2-1.0) mg/dl AST 9 L (13-39) U/L ALT 22 (7-52) U/L Alkaline Phosphatase 72 (34-104) U/L Troponin I High Sens 32.9 H (0-20) pg/ml Total Protein 6.8 (6.0-8.3) gm/dl Albumin 3.9 (3.4-5.0) gm/dl Globulin 2.9 (2.5-4.0) gm/dl Albumin/Globulin Ratio 1.3 (0.9-2) TSH (0.300-4.500) uIu/ml SARS-CoV-2 (PCR) (Negative) 11/09/22 11/09/22 Range/Units 00:34 00:34 WBC (4.8-10.8) K/ul RBC (4.70-6.10) M/uL Hgb (14.0-18.0) g/dl Hct (42.0-52.0) % MCV (80.0-100.0) fL MCH (25.0-34.0) pg MCHC (32.0-36.0) g/dL RDW Std Deviation (36.4-46.3) fL RDW Coeff of Efrian (11.5-14.5) % Plt Count (130-400) K/uL MPV (9.4-12.4) fL Neutrophils % (Manual) % Lymphocytes % (Manual) % Neutrophils # (Manual) (1.40-6.50) K/uL Total Absolute Neuts (1.4-6.5) K/uL Lymphocytes # (Manual) (1.2-3.4) K/uL Total Abs Lymphocytes (1.2-3.4) K/uL PT (9.0-12.0) Seconds INR (0.9-1.1) APTT (21.0-31.0) Seconds PTT Ratio Sodium (136-145) mmol/L Potassium (3.5-5.1) mmol/L Chloride (98-107) mmol/L Carbon Dioxide (21-32) mmol/L Anion Gap (3-11) BUN (6-23) mg/dl Creatinine (0.6-1.4) mg/dl Est Cr Clr Drug Dosing ml/min Est GFR ( Amer) ml/min Est GFR (Non-Af Amer) ml/min BUN/Creatinine Ratio (10-20) Glucose (70-99(Fasting)) mg/dl Calcium (8.6-10.3) mg/dl Magnesium (1.7-2.4) mg/dl Total Bilirubin (0.2-1.0) mg/dl AST (13-39) U/L ALT (7-52) U/L Alkaline Phosphatase (34-104) U/L Troponin I High Sens (0-20) pg/ml Total Protein (6.0-8.3) gm/dl Albumin (3.4-5.0) gm/dl Globulin (2.5-4.0) gm/dl Albumin/Globulin Ratio (0.9-2) TSH 0.615 (0.300-4.500) uIu/ml SARS-CoV-2 (PCR) NEGATIVE (Negative) Administered Medications Diltiazem HCl 125 mg/ Dextrose 125 mls @ 10 mls/hr IV [id number]; Protocol Stop: 12/09/22 00:14 Last Titration: 11/09/22 03:08 Dose: 15 mg/hr, 15 mls/hr Documented By: AN Co-signed By: NEGRO Titration: 11/09/22 02:03 Dose: 10 mg/hr, 10 mls/hr Documented By: AN Co-signed By: UMU Titration: 11/09/22 01:11 Dose: 7.5 mg/hr, 7.5 mls/hr Documented By: ANGELO Co-signed By: ODALIS Admin: 11/09/22 00:38 Dose: 5 mg/hr, 5 mls/hr Documented By: AN Co-signed By: ANGELO Heparin Sodium/Dextrose (Heparin Sodium/Dextrose) 25,000 units in 500 mls @ 20 mls/hr IV [facility]Q24H [facility]; Protocol Stop: 12/09/22 02:44 Last Admin: 11/09/22 03:07 Dose: 1,000 units/hr, 20 mls/hr Documented By: AN Co-signed By: NEGRO Discontinued Medications Diltiazem HCl (Diltiazem Hcl 5 Mg/Ml 5 Ml Vial) 10 mg IV NOW STA Stop: 11/09/22 00:12 Last Admin: 11/09/22 00:19 Dose: 10 mg Documented By: AN Co-signed By: ANGELO Diltiazem HCl (Diltiazem Hcl 5 Mg/Ml 5 Ml Vial) 10 mg IV NOW STA Stop: 11/09/22 01:23 Last Admin: 11/09/22 01:26 Dose: 10 mg Documented By: AN Co-signed By: ANGELO Sodium Chloride (Nss 1000ml) 1,000 mls @ 999 mls/hr IV .Q1H1M STA Stop: 11/09/22 01:11 Last Infusion: 11/09/22 01:21 Dose: 0 mls/hr Documented By: Admin: 11/09/22 00:19 Dose: 999 mls/hr Documented By: AN Potassium Chloride (K Manuel / Wtr) 10 meq in 100 mls @ 100 mls/hr IV ONE ONE; Protocol Stop: 11/09/22 02:42 Last Infusion: 11/09/22 02:59 Dose: 0 mls/hr Documented By: Admin: 11/09/22 01:59 Dose: 100 mls/hr Documented By: AN Miscellaneous (Stat Iv Infusion Titration Per Protocol) 1 each N/A NOW STA Stop: 11/09/22 00:12 Last Admin: 11/09/22 00:39 Dose: 1 each Documented By: AN Discharge Plan Visit Data Chief Complaint: Arrhythmia/Palpitations Stated Complaint: PALPATATIONS ED Provider: Ted Adams Discharge Problem: Atrial fibrillation with rapid ventricular response Forms Stand Alone Forms: [facility] Prescriptions Prescriptions: No Action albuterol sulfate 90 mcg/actuation Hfa Aerosol Inhaler 2 puff INHALATION QID PRN (Reason: Shortness Of Breath Or Wheezing) hydroxyzine pamoate 25 mg Capsule 25 mg PO BID heparin lock flush (porcine) 100 unit/mL Solution 0 unit IV MO Rx Instructions: administer after IV drug administration as part of [facility] protocol prochlorperazine maleate 10 mg Tablet 10 mg PO QID PRN (Reason: Nausea) Rx Instructions: Stop 11/09/22 pantoprazole 40 mg Tablet,Delayed Release (Dr/Ec) 40 mg PO BID Rx Instructions: until docusate sodium 100 mg Capsule 100 mg PO BID lactulose 10 gram/15 mL Solution 15 g PO DAILY PRN (Reason: Constipation) Referrals Referrals: Oracio VILLEGAS [Primary Care Provider] -
[2022-11-09] MEDS ORDERED: POLYETHYLENE (MIRALAX) 17 GM PACK PO PRN ×2 (02:45→10:45)
[2022-11-09] MEDS ORDERED: HEPARIN SODIUM/DEXTROSE 25,000 UNITS/500 ML BAG IV SCH (02:45)
[2022-11-09] MEDS ORDERED: Heparin IV Adult Wt-Based Low-Dose *NO* Bolus Protocol IV ONE (02:45)
--- NOTE | 2022-11-09 02:48 | History & Physical Report ---
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 No previous occurrence Occurred at 9:00 this evening He has received Cardizem 10 mg IV pushes x2, and Cardizem drip is presently 10 mg/h with a systolic blood pressure in the low 120s He did receive potassium chloride 10 mEq IV rider, for potassium 3.7. Magnesium is 2.2 Troponin elevated at 32.9, likely secondary to increased heart rate Continue Cardizem drip for now, and titrate as blood pressure allows Start heparin drip without bolus Placed on NSS + KCl 20 mill equivalents at 80 mils per hour x1 L Consult cardiology Dr. Givens Lymphoma/history of pancytopenia- Laboratories well within normal, as it is recently gotten injections He reports having 1 more treatment for chemotherapy remaining Most recently admitted to [facility] from 10/22-10/26/2022 for neutropenic fever Hyperglycemia- Glucose 168 on admission Check hemoglobin A1c Hold off on diabetic diet until we see what is A1c and follow sugars are Constipation- Work on improving bowel movements to minimize potential for GI bleeding on blood thinners History of Present Illness Chief Complaint: The patient presents to the emergency department with report of the acute onset of rapid irregular heartbeat around 9:00 this evening. 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 Patient has never had irregular heartbeat before, and he reports at 9:00 this evening he became aware of a is heart rate suddenly becoming rapid. He does not have any chest pain or shortness of breath, he did not have any lightheadedness or dizziness. He denies any other associated symptoms Allergies Allergy/AdvReac Type Severity Reaction Status Date / Time No Known Allergies Allergy Verified 11/09/22 02:27 Home Medications Medication Instructions Recorded Confirmed Type albuterol sulfate 90 mcg/actuation 2 puff inhalation QID PRN 10/22/22 11/09/22 History aerosol inhaler Shortness Of Breath Or Wheezing heparin lock flush (porcine) 100 0 unit IV MO 10/22/22 11/09/22 History unit/mL intravenous solution hydroxyzine pamoate 25 mg capsule 25 mg PO BID 10/22/22 11/09/22 History docusate sodium 100 mg capsule 100 mg PO BID 11/09/22 11/09/22 History lactulose 10 gram/15 mL oral 15 g PO DAILY PRN Constipation 11/09/22 11/09/22 History solution pantoprazole 40 mg tablet,delayed 40 mg PO BID 11/09/22 11/09/22 History release prochlorperazine maleate 10 mg 10 mg PO QID PRN Nausea 11/09/22 11/09/22 History tablet Past Med/Surg History Medical History (Updated 11/09/22 @ 02:41 by Magnus Mercado MD) Anemia Anxiety disorder, unspecified Constipation GERD (gastroesophageal reflux disease) History of COVID-19 03/29/2020 History of tobacco use HTN (hypertension) Impetigo ? 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 Pneumonia due to COVID-19 virus Pulmonary embolism 03/2020 Retinal disorder Rhinitis Scabies h/o, no current infection per PA at [facility] Shortness of breath chronic per PA at [facility] SIRS (systemic inflammatory response syndrome) Thrombocytopenia Surgical History Port-A-Cath in place (05/22/22) Insertion of Left Internal Jugular Access Port with Fluoroscopy(Left) - Tim Ubran DO, FACS S/P lymph node biopsy (02/21/22) Right Axillary Lymph Node Biopsy with Frozen Section(Right) - Eben Kaufman MD, FACS Social History Smoking Status: Never smoker Tobacco Type: Cigarettes Second Hand Exposure: No; Do You Dip or Chew Tobacco: No; Hx Alcohol Use: No Hx Substance Use: No Preferred Language: Estonian Communication Ability: Effective Research Psychologist Required: No Beliefs That Will Affect Care: None Current Living Situation: Other Current Living Situation Comment: half-way Feels Safe at Home: Yes Assistive Devices: None Review of Systems Review of Systems: The patient denies chest pain, cough, lower extremity swelling, sore throat, fevers, chills, sweats, nausea, vomiting, diarrhea , constipation, abdominal pain, pelvic pain, blood in urine or stool, dysuria, urinary frequency or urgency, lightheadedness, dizziness, headache, memory loss, loss of consciousness, rash, abnormal bruising or bleeding, imbalance, focal or generalized weakness, numbness or tingling in arms or legs, generalized arthralgias or myalgias, back or neck pain, or night sweats. The review of systems is otherwise negative other than for that already noted above, and at least 10 systems have been reviewed. Physical Exam Physical Exam: The patient is awake, alert and oriented 3, well developed and well nourished, normocephalic and atraumatic, lying in bed and in no acute distress. HEENT--PERRL, EOMI, mucous membranes and oropharynx normal. Neck--supple. No JVD. No bruits. Thyroid normal, trachea midline, no adenopathy. Heart--irregularly irregular and tachycardic. No murmurs, rubs or gallops. Lungs--clear bilaterally, no respiratory distress, no accessory muscle use. Abdomen--normal bowel sounds and soft. Nontender. Nondistended, no hernias or masses, no organomegaly. Extremities--no cyanosis or clubbing. No edema. There are good distal pulses b/l. Dermatologic--normal skin turgor, normal color, no abnormal lymph nodes, no rash. Neurologic--cranial nerves II through XII grossly intact. Rheumatologic--normal range of motion. Psychiatric--normal affect. Results & Data Results & Data Vital Signs (Past 12 Hours) Vital Signs Temp Pulse Pulse Resp BP BP Pulse Ox 11/09/22 02:33 156 H 22 149/75 H 97 11/09/22 01:31 128 H 20 137/94 96 11/09/22 01:00 127 H 23 114/85 99 11/09/22 00:12 181 H 11/09/22 00:31 136 H 23 118/70 95 11/09/22 00:12 179 H 24 119/77 96 11/08/22 23:50 36.9 C 97 H 18 132/80 96 O2 Del Method 11/09/22 02:33 11/09/22 01:31 Room Air 11/09/22 01:00 Room Air 11/09/22 00:12 11/09/22 00:31 Room Air 11/09/22 00:12 11/08/22 23:50 Room Air Laboratory Results Laboratory Results WBC 21.49 K/ul (4.8-10.8) H 11/09/22 00:34 RBC 3.77 M/uL (4.70-6.10) L 11/09/22 00:34 Hgb 11.8 g/dl (14.0-18.0) L 11/09/22 00:34 Hct 34.5 % (42.0-52.0) L 11/09/22 00:34 MCV 91.5 fL (80.0-100.0) 11/09/22 00:34 MCH 31.3 pg (25.0-34.0) 11/09/22 00:34 MCHC 34.2 g/dL (32.0-36.0) 11/09/22 00:34 RDW Std Deviation 57.8 fL (36.4-46.3) H 11/09/22 00:34 RDW Coeff of Efrian 17.2 % (11.5-14.5) H 11/09/22 00:34 Plt Count 264 K/uL (130-400) 11/09/22 00:34 MPV 10.0 fL (9.4-12.4) 11/09/22 00:34 Neutrophils % (Manual) 96 % 11/09/22 00:34 Lymphocytes % (Manual) 4 % 11/09/22 00:34 Neutrophils # (Manual) 20.63 K/uL (1.40-6.50) H 11/09/22 00:34 Total Absolute Neuts 20.63 K/uL (1.4-6.5) H 11/09/22 00:34 Lymphocytes # (Manual) 0.86 K/uL (1.2-3.4) L 11/09/22 00:34 Total Abs Lymphocytes 0.86 K/uL (1.2-3.4) L 11/09/22 00:34 PT 10.8 Seconds (9.0-12.0) 11/09/22 00:34 INR 1.0 (0.9-1.1) 11/09/22 00:34 APTT 22.1 Seconds (21.0-31.0) 11/09/22 00:34 PTT Ratio 0.8 11/09/22 00:34 Sodium 140 mmol/L (136-145) 11/09/22 00:34 Potassium 3.7 mmol/L (3.5-5.1) 11/09/22 00:34 Chloride 109 mmol/L (98-107) H 11/09/22 00:34 Carbon Dioxide 25 mmol/L (21-32) 11/09/22 00:34 Anion Gap 6 (3-11) 11/09/22 00:34 BUN 15 mg/dl (6-23) 11/09/22 00:34 Creatinine 0.64 mg/dl (0.6-1.4) 11/09/22 00:34 Est Cr Clr Drug Dosing 227.6 ml/min 08 00:34 Est GFR ( Amer) 142.9 ml/min 11/09/22 00:34 Est GFR (Non-Af Amer) 123.3 ml/min 11/09/22 00:34 BUN/Creatinine Ratio 23.4 (10-20) H 11/09/22 00:34 Glucose 168 mg/dl (70-99(Fasting)) H 11/09/22 00:34 Calcium 8.8 mg/dl (8.6-10.3) 11/09/22 00:34 Magnesium 2.2 mg/dl (1.7-2.4) 11/09/22 00:34 Total Bilirubin 0.5 mg/dl (0.2-1.0) 11/09/22 00:34 AST 9 U/L (13-39) L 11/09/22 00:34 ALT 22 U/L (7-52) 11/09/22 00:34 Alkaline Phosphatase 72 U/L (34-104) 11/09/22 00:34 Troponin I High Sens 32.9 pg/ml (0-20) H 11/09/22 00:34 Total Protein 6.8 gm/dl (6.0-8.3) 11/09/22 00:34 Albumin 3.9 gm/dl (3.4-5.0) 11/09/22 00:34 Globulin 2.9 gm/dl (2.5-4.0) 11/09/22 00:34 Albumin/Globulin Ratio 1.3 (0.9-2) 11/09/22 00:34 TSH 0.615 uIu/ml (0.300-4.500) 11/09/22 00:34 SARS-CoV-2 (PCR) NEGATIVE (Negative) 11/09/22 00:34 Code Status & VTE Plan Code Status Full code VTE Prophylaxis Plan VTE Prophylaxis will be ordered: Yes PG Care Time/CCT Total # of Minutes Spent Total Time Spent with Patient: Total time spent is greater than 50% in coordination of care (as documented) at patient's floor/unit and/or counseling patient: Coding Level of Care Code 11603 INT INP/OBS CARE 3/75MIN Diagnoses Atrial fibrillation with rapid ventricular response I48.91 Lymphoma C85.90 Lymphoma site: unspecified region Lymphoma type: unspecified type Non-Hodgkin lymphoma C85.90 Anemia D64.9 Anemia type: unspecified type 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
[2022-11-09] MEDS ORDERED: ONDANSETRON INJ 2 MG/ML 2 ML VIAL IV PRN (04:43)
[2022-11-09] MEDS ORDERED: ALBUTEROL HFA 8 GM INHALER INH PRN (04:43)
[2022-11-09] MEDS ORDERED: ACETAMINOPHEN 325 MG TAB PO PRN (04:43)
[2022-11-09] MEDS ORDERED: NSS + 20MEQ KCL 20 MEQ/1,000 ML BAG IV SCH (04:43)
--- NOTE | 2022-11-09 08:13 | Hospitalist Progress Note ---
Date of Service November 09, 2022 Assessment & Plan (1) Atrial fibrillation with rapid ventricular response: Plan: Atrial fibrillation with RVR-No previous occurrence, started on diltiazem gtt in ER serial cardiac enzymes, serial troponins 2-D echocardiogram with Dopplers. 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 from 10/22-10/26/2022 for neutropenic fever Pt with anemia associated with his lymphoma, stable and not in need of transfusion leukocytosis may be from recent treatment of lymphoma we will check urine analysis to be complete (3) Anxiety disorder, unspecified: Plan Hyperglycemia- Glucose 168 on admission Check hemoglobin A1c Hold off on diabetic diet until we see what is A1c and follow sugars are Constipation- Work on improving bowel movements to minimize potential for GI bleeding on blood thinners Admission and Anticipated Discharge Date Admission Date: November 09, 2022 Subjective pt with asymptomatic A-fib appreciate electrophysiology evaluation. Patient feels he is swollen or puffy likely from some IV fluid given in the ER. Physical Exam Physical Exam: Irregular rhythm rapid at times myelogram, interpretation by radiology shows degenerative and postoperative changes with no significant central canal stenosis with multilevel [id number] facet arthrosis. Results & Data Results & Data Vital Signs (Past 12 Hours) Vital Signs Temp Pulse Pulse Resp BP BP Pulse Ox 11/09/22 07:31 96 H 11/09/22 04:36 108 H 11/09/22 04:43 98.2 F 106 H 18 130/82 97 11/09/22 04:00 98.2 F 91 H 20 130/82 97 11/09/22 03:44 126 H 16 95 11/09/22 03:31 109 H 16 136/99 96 11/09/22 03:00 113 H 16 149/114 H 96 11/09/22 02:33 156 H 22 149/75 H 97 11/09/22 01:31 128 H 20 137/94 96 11/09/22 01:00 127 H 23 114/85 99 11/09/22 00:12 181 H 11/09/22 00:31 136 H 23 118/70 95 11/09/22 00:12 179 H 24 119/77 96 11/08/22 23:50 98.4 F 97 H 18 132/80 96 O2 Del Method 11/09/22 07:31 11/09/22 04:36 11/09/22 04:43 Room Air 11/09/22 04:00 Room Air 11/09/22 03:44 Room Air 11/09/22 03:31 Room Air 11/09/22 03:00 Room Air 11/09/22 02:33 11/09/22 01:31 Room Air 11/09/22 01:00 Room Air 11/09/22 00:12 11/09/22 00:31 Room Air 11/09/22 00:12 11/08/22 23:50 Room Air Laboratory Results reviewed CBC reviewed chemistry reviewed troponin reviewed electrophysiology note PG Care Time/CCT Total # of Minutes Spent Total Time Spent with Patient: Total time spent is greater than 50% in coordination of care (as documented) at patient's floor/unit and/or counseling patient: Coding Level of Care Code 04680 SUB INP/OBS CARE 3/50MIN Diagnoses Atrial fibrillation with rapid ventricular response I48.91 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
--- NOTE | 2022-11-09 09:27 | Cardiology Consultation ---
Date of Consultation November 09, 2022 Assessment & Plan (1) Atrial fibrillation with rapid ventricular response: Plan 1. Atrial fibrillation: On preliminary evaluation this appears to be lone atrial fibrillation. I do not know that his lymphoma or the chemotherapy is involved although the timeframe and his young age is suspicious. His TSH is on the low side but within the normal range, on preliminary review of his echocardiogram I do not see anything concerning but the formal reading is pending. I would switch his diltiazem to oral and I have made that change, we can continue his metoprolol for now. His [id number] score is 0 so he should not be on long-term anticoagulation unless we feel it is necessary with his lymphoma, for now I think he should be on an anticoagulant so that we will give us the option of converting his rhythm if needed. I would switch to Eliquis 5 mg twice a day but I will leave that up to the primary service, I am not sure why he is n.p.o. I would not cardiovert him now. He is relatively asymptomatic and will likely convert on his own, if not I would wait a month on anticoagulation before doing the conversion. History of Present Illness Reason for Consultation: Atrial fibrillation with RVR Attending Physician: Esau Langley MD History of Present Illness This is a 41-year-old incarcerated male with a history of hypertension, tobacco use, pulmonary embolism in 2020 and GERD. He also has T-cell lymphoma and presented with new onset of palpitations. This evidently started around 2100 on the evening of November 08, 2022. He was brought to the emergency room where he was observed to be in atrial fibrillation with a rapid ventricular response (178 bpm). In the emergency room he received diltiazem bolus and drip. His troponin was elevated to 33 felt likely secondary to the elevated heart rate. This was repeated 7 hours later and dropped to 21 consistent with this. He was also started on a heparin drip. An echocardiogram based on a brief review by myself shows good left ventricular function with no effusion. On further questioning he has not had symptoms like this in the past, although he thinks he may have had something unusual for several days but it got much worse the day of presentation. He has not been very active since he is in the [facility] due to his chemotherapy. Prior to going to the [facility] around July of this year he was quite active and had no difficulty. Allergies Allergy/AdvReac Type Severity Reaction Status Date / Time No Known Allergies Allergy Verified 11/09/22 02:27 Home Medications Medication Instructions Recorded Confirmed Type albuterol sulfate 90 mcg/actuation 2 puff inhalation QID PRN 10/22/22 11/09/22 History aerosol inhaler Shortness Of Breath Or Wheezing heparin lock flush (porcine) 100 0 unit IV MO 10/22/22 11/09/22 History unit/mL intravenous solution hydroxyzine pamoate 25 mg capsule 25 mg PO BID 10/22/22 11/09/22 History docusate sodium 100 mg capsule 100 mg PO BID 11/09/22 11/09/22 History lactulose 10 gram/15 mL oral 15 g PO DAILY PRN Constipation 11/09/22 11/09/22 History solution pantoprazole 40 mg tablet,delayed 40 mg PO BID 11/09/22 11/09/22 History release prochlorperazine maleate 10 mg 10 mg PO QID PRN Nausea 11/09/22 11/09/22 History tablet Patient History Medical History Anemia Anxiety disorder, unspecified Constipation GERD (gastroesophageal reflux disease) History of COVID-19 03/29/2020 History of tobacco use HTN (hypertension) Impetigo ? 2015 per records Inmate in correctional facility 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 Pneumonia due to COVID-19 virus Pulmonary embolism 03/2020 Retinal disorder Rhinitis Scabies h/o, no current infection per PA at [facility] Shortness of breath chronic per PA at [facility] SIRS (systemic inflammatory response syndrome) Thrombocytopenia Surgical History Port-A-Cath in place (05/22/22) Insertion of Left Internal Jugular Access Port with Fluoroscopy(Left) - Tim Urban DO, FACS S/P lymph node biopsy (02/21/22) Right Axillary Lymph Node Biopsy with Frozen Section(Right) - Eben Kaufman MD, FACS Social History Smoking Status: Never smoker Tobacco Type: Cigarettes Second Hand Exposure: No; Do You Dip or Chew Tobacco: No; Hx Alcohol Use: No Hx Substance Use: No Preferred Language: Amharic Communication Ability: Effective Director Service Required: No Beliefs That Will Affect Care: None Current Living Situation: Other Current Living Situation Comment: retirement Other Information That Helps Us Care for You: No Feels Safe at Home: Yes Safety Concerns: Feels Safe At This Time Assistive Devices: None Review of Systems Review of Systems: All systems reviewed & are unremarkable except as noted in HPI & below Physical Exam Physical Exam: Constitutional: Alert, cooperative and in no distress. HEENT: Unremarkable Neck: No jugular venous distention, carotid pulses are irregular but otherwise normal and equal bilaterally without bruits. Pulmonary: Clear to auscultation bilaterally. Cardiac: Irregular rhythm with no murmur, gallop or rub. Abdomen: Soft, nontender with normal bowel sounds. Extremities: No edema. Distal pulses intact. Neurologic: No focal findings. Gait is steady. Skin: No rash, ecchymoses or petechiae. Results & Data Vital Signs (Past 12 Hours) Vital Signs Temp Pulse Pulse Resp BP BP Pulse Ox 11/09/22 07:52 36.5 C 85 20 115/81 94 11/09/22 07:31 96 H 11/09/22 04:36 108 H 11/09/22 04:43 36.8 C 106 H 18 130/82 97 11/09/22 04:00 36.8 C 91 H 20 130/82 97 11/09/22 03:44 126 H 16 95 11/09/22 03:31 109 H 16 136/99 96 11/09/22 03:00 113 H 16 149/114 H 96 11/09/22 02:33 156 H 22 149/75 H 97 11/09/22 01:31 128 H 20 137/94 96 11/09/22 01:00 127 H 23 114/85 99 11/09/22 00:12 181 H 11/09/22 00:31 136 H 23 118/70 95 11/09/22 00:12 179 H 24 119/77 96 11/08/22 23:50 36.9 C 97 H 18 132/80 96 O2 Del Method 11/09/22 07:52 Room Air 11/09/22 07:31 11/09/22 04:36 11/09/22 04:43 Room Air 11/09/22 04:00 Room Air 11/09/22 03:44 Room Air 11/09/22 03:31 Room Air 11/09/22 03:00 Room Air 11/09/22 02:33 11/09/22 01:31 Room Air 11/09/22 01:00 Room Air 11/09/22 00:12 11/09/22 00:31 Room Air 11/09/22 00:12 11/08/22 23:50 Room Air Laboratory Results Cardiac Enzymes 11/09/22 11/09/22 Range/Units 00:34 07:17 AST 9 L (13-39) U/L Troponin I High Sens 32.9 H 21.5 H D (0-20) pg/ml Coagulation 11/09/22 Range/Units 00:34 PT 10.8 (9.0-12.0) Seconds APTT 22.1 (21.0-31.0) Seconds CBC 11/09/22 Range/Units 00:34 WBC 21.49 H (4.8-10.8) K/ul RBC 3.77 L (4.70-6.10) M/uL Hgb 11.8 L (14.0-18.0) g/dl Hct 34.5 L (42.0-52.0) % Plt Count 264 (130-400) K/uL Comprehensive Metabolic Panel 11/09/22 Range/Units 00:34 Sodium 140 (136-145) mmol/L Potassium 3.7 (3.5-5.1) mmol/L Chloride 109 H (98-107) mmol/L Carbon Dioxide 25 (21-32) mmol/L BUN 15 (6-23) mg/dl Creatinine 0.64 (0.6-1.4) mg/dl Glucose 168 H (70-99(Fasting)) mg/dl Calcium 8.8 (8.6-10.3) mg/dl AST 9 L (13-39) U/L ALT 22 (7-52) U/L Alkaline Phosphatase 72 (34-104) U/L Total Protein 6.8 (6.0-8.3) gm/dl Albumin 3.9 (3.4-5.0) gm/dl Intake and Output 11/08/22 11/09/22 11/09/22 22:59 06:59 14:59 Intake Total 1177.833 / 1255.500 92.917 / 92.917 Output Total 250 / 250 Balance 927.833 / 1005.500 92.917 / 92.917 Intake: IV 1177.833 / 1255.500 92.917 / 92.917 Heparin Sodium/Dextrose 25,000 77.667 / 77.667 units In 500 ml @ 1,000 UNITS/ HR 20 mls/hr IV .Q24H RAMESH Rx#: [id number] Potassium Chloride / Wtr 10 meq 100 / 100 In 100 ml @ 100 mls/hr IV ONE ONE Rx#:[id number] Sodium Chloride 0.9% 1000ML 1, 1000 / 1000 000 ml @ 999 mls/hr IV .Q1H1M ST[facility] Rx#:[id number] dilTIAZem HCL 125 mg In 77.833 / 77.833 15.25 / 15.25 Dextrose 5% 100 ml @ 10 MG/HR 10 mls/hr IV .[id number] [facility] Rx#: [id number] Output: Urine 250 / 250 Other: Weight 133.3 kg Weight Measurement Method Standing Scale Diagnostic Findings Telemetry: Atrial fibrillation with a rapid ventricular response, the rate has improved markedly since presentation, now averaging around 100 bpm. PG Care Time/CCT Total # of Minutes Spent Total Time Spent with Patient: Total time spent is greater than 50% in coordination of care (as documented) at patient's floor/unit and/or counseling patient: Coding Level of Care Code 21855 IN/OBS CONSULT LVL 4,60M Diagnoses Atrial fibrillation with rapid ventricular response I48.91
[2022-11-09] MEDS: PANTOprazole 40 MG TAB PO SCH (10:07)
[2022-11-09] MEDS: METOPROLOL TARTRATE 25 MG TAB PO SCH ×2 (10:07→20:32)
[2022-11-09] MEDS: hydrOXYzine HCl 25 MG TAB PO SCH ×2 (10:07→20:30)
[2022-11-09 10:12] LABS: Partial Thromboplastin Ratio 1.2
[2022-11-09] MEDS ORDERED: POLYETHYLENE (MIRALAX) 17 GM PACK PO ONE (11:00)
[2022-11-09] MEDS ORDERED: HEPARIN SOD (PORCINE) 1000 UNIT/ML IV ONE (11:00)
[2022-11-09] MEDS ORDERED: FUROSEMIDE INJ 20 MG/2 ML VIAL IV ONE (11:00)
[2022-11-09] MEDS: dilTIAZem HCL 300 MG CAPCR PO SCH (11:53)
--- NOTE | 2022-11-09 12:44 | XCELERA ---
[id number] \\ISCV-[facility]BERT[facility]\[email or web address]_PDF_[email or web address]\[id number]}___[id number]
[2022-11-09 18:38] LABS: Partial Thromboplastin Ratio 1.2
[2022-11-09 19:53] LABS: Partial Thromboplastin Time 29.3 Seconds (21.0-31.0)
[2022-11-09] MEDS: APIXABAN 5 MG TABLET PO SCH (20:31)
[2022-11-09] MEDS ORDERED: DOCUSATE SODIUM/SENNA 50/8.6MG TAB PO SCH (21:00)
[2022-11-10 06:32] LABS: Hematocrit (blood only) 31.1 % (42.0-52.0); Hemoglobin 10.2 g/dl (14.0-18.0); Mean Corpuscular Hemoglobin 30.4 pg (25.0-34.0); Mean Corpuscular Hgb Conc 32.8 g/dL (32.0-36.0); Mean Corpuscular Volume 92.8 fL (80.0-100.0); Mean Platelet Volume 10.4 fL (9.4-12.4); Platelet Count 174 K/uL (130-400); RDW Coefficient of Variation 17.1 % (11.5-14.5); RDW Standard Deviation 57.2 fL (36.4-46.3); Red Blood Count 3.35 M/uL (4.70-6.10); White Blood Count 5.78 K/ul (4.8-10.8)
[2022-11-10 06:49] LABS: Albumin Globulin Ratio 1.3 (0.9-2); Albumin Level 3.3 gm/dl (3.4-5.0); BUN Creatinine Ratio 28.8 (10-20); Bilirubin,Total 0.9 mg/dl (0.2-1.0); Calcium 8.8 mg/dl (8.6-10.3); Creatinine Clr Calc Pharmacy 218.3 ml/min; Est GFR (African American) 141.2 ml/min; Est GFR (Non-African American) 121.8 ml/min; Globulin 2.6 gm/dl (2.5-4.0); Magnesium 1.9 mg/dl (1.7-2.4); Potassium 4.1 mmol/L (3.5-5.1); Total Protein 5.9 gm/dl (6.0-8.3)
[2022-11-10 06:53] LABS: Dohle Bodies 1+; Tear Drop Cells 1+
[2022-11-10 07:06] LABS: Eosinophils % (manual) 6 %; Lymphocytes % (manual) 19 %; Neutrophils % (manual) 75 %
[2022-11-10 07:28] LABS: Partial Thromboplastin Ratio 0.9; Partial Thromboplastin Time 24.4 Seconds (21.0-31.0); Prothrombin Time 11.1 Seconds (9.0-12.0)
[2022-11-10] MEDS: METOPROLOL TARTRATE 25 MG TAB PO SCH (07:55)
[2022-11-10] MEDS: dilTIAZem HCL 300 MG CAPCR PO SCH (07:56)
[2022-11-10] MEDS: PANTOprazole 40 MG TAB PO SCH (07:56)
[2022-11-10] MEDS: hydrOXYzine HCl 25 MG TAB PO SCH (07:56)
[2022-11-10] MEDS: APIXABAN 5 MG TABLET PO SCH (07:56)
[2022-11-10] MEDS ORDERED: POLYETHYLENE (MIRALAX) 17 GM PACK PO SCH (09:00)
[2022-11-10] MEDS ORDERED: APIXABAN 5 MG TABLET PO SCH (11:45)
[2022-11-10] MEDS ORDERED: dilTIAZem HCL 300 MG CAPCR PO SCH (11:45)
--- NOTE | 2022-11-10 17:00 | Discharge Summary ---
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 Patient has never had irregular heartbeat before, and he reports at 9:00 this evening he became aware of a is heart rate suddenly becoming rapid. He does not have any chest pain or shortness of breath, he did not have any lightheadedness or dizziness. He denies any other associated symptoms Principal Diagnosis atrial fib with conversion to NSR Discharge Exam awake and alert no distress card exam is regular with no murmurs Discharge Data Allergies Allergy/AdvReac Type Severity Reaction Status Date / Time No Known Allergies Allergy Verified 11/09/22 02:27 Consultations 11/09/22 01:44 ED Decision to Admit Stat 11/09/22 04:43 Consult Cardiology Routine Hospital Course (1) Atrial fibrillation with rapid ventricular response: Atrial fibrillation with RVR-No previous occurrence, started on diltiazem gtt in ER started on long-acting diltiazem on the floor converted to normal sinus rhythm around 1 PM on observed overnight and remains in normal sinus rhythm serial cardiac enzymes, serial troponins 32-21-18 2-D echocardiogram with Dopplers. normal left ventricular systolic function left atrium mildly dilated right ventricular systolic pressure normal mild aortic root dilatation Started heparin drip without bolus, CHADvasc score zero, Cardiology feels since to Eliquis therapy likely will continue for a month after conversion no need to continue oral metoprolol will follow-up outpatient with electrophysiology I did converse with electrophysiology prior to discharge patient is felt stable for discharge in regard to the cardiology opinion (2) Peripheral T cell lymphoma of axillary lymph nodes: Lymphoma/history of pancytopenia- Laboratories well within normal, as it is recently gotten injections He reports having 1 more treatment for chemotherapy remaining Most recently admitted to [facility] from 10/22-10/26/2022 for neutropenic fever Pt with anemia associated with his lymphoma, stable and not in need of transfusion leukocytosis may be from recent treatment of lymphoma we will check urine analysis to be complete (3) Anxiety disorder, unspecified: Plan Hyperglycemia- Glucose 168 on admission A1c is pending at discharge Hold off on diabetic diet until we see what is A1c and follow sugars are Constipation- recommend senna while at the [place] Total Time Total Time Spent Total Time Spent (In Minutes): discharge 30 including 2 phone calls to the presence physician occupational therapy assistant and the pharmacy to arrange for outpatient medication dispense meant Discharge Plan Discharge Items Patient Disposition: Home - Self-Care Reason For Visit: ATRIAL FIBRILLATION WITH RVR Discharge Diagnosis: atrial fibrillation, converted to sinus rhythm mild dialation of aortic root Activity: Resume your previous activity Non-emergency contact: Primary Care Provider Call non-emergency contact if: your symptoms worsen Follow-up/Referrals: Peña Givens MD [Physician] - Aide VILLEGAS [Primary Care Provider] - Diet: Regular Addtl Attending Provider Instructions: this pt had Atrial fibrillation converted to normal rhythm he was seen by [facility] Dr Givens who recommends cardizem extended release 300mg a day and use Eliquis 5 mg twice a day. The Eliquis is only for one month unles he returns to atrial fibrillation if there is a return to afib and his rate is rapid return to the ER< if rate is not rapid contact Dr Givens office Addtl [place] Department Manager Provider Instructions: there is mild dilation of your aortic root, this will be followed at Cardiology office Pending Studies at Discharge: No Stand-Alone Forms: My [facility] [place], Smoking Cessation Medications and DC Order Prescriptions: New sennosides-docusate sodium [Senokot-S] 8.6-50 mg Tablet 2 tab PO HS Qty: 30 0RF diltiazem HCl [Cardizem CD] 300 mg Capsule,Extended Release 24hr 300 mg PO QAM Qty: 30 4RF Eliquis 5 mg Tablet 5 mg PO BID Qty: 60 0RF Continued albuterol sulfate 90 mcg/actuation Hfa Aerosol Inhaler 2 puff INHALATION QID PRN (Reason: Shortness Of Breath Or Wheezing) hydroxyzine pamoate 25 mg Capsule 25 mg PO BID heparin lock flush (porcine) 100 unit/mL Solution 0 unit IV MO Rx Instructions: administer after IV drug administration as part of [facility] protocol prochlorperazine maleate 10 mg Tablet 10 mg PO QID PRN (Reason: Nausea) Rx Instructions: Stop 11/09/22 pantoprazole 40 mg Tablet,Delayed Release (Dr/Ec) 40 mg PO BID Rx Instructions: until docusate sodium 100 mg Capsule 100 mg PO BID lactulose 10 gram/15 mL Solution 15 g PO DAILY PRN (Reason: Constipation) Discharge Orders: Discharge Order (Routine); Ordered 11/10/22 Ordered By: Esau Langley Admission Data Admit Date/Time: 11/09/22 02:34 Attending Provider: Esau Langley Admit Provider: Magnus Mercado Primary Care Provider: Aide VILLEGAS Other Providers: Magnus Mercado ; Peña Givens Other Interventions: Discharge Summary Assessment (RN) Last Done: 11/10/22 11:51 Coding Level of Care Code 68796 INP/OBS DISCH >30 MIN Diagnoses Atrial fibrillation with rapid ventricular response I48.91 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
[2022-11-11] MEDS ORDERED: HEPARIN 100 UNIT/ML 5ML FLUSH IV SCH (09:00)
--- NOTE | 2022-11-11 09:00 | Electrocardiogram Report ---
Test Reason : Blood Pressure : / mmHG Vent. Rate : 178 BPM Atrial Rate : 000 BPM P-R Int : 000 ms QRS Dur : 078 ms QT Int : 258 ms P-R-T Axes : 000 056 -36 degrees QTc Int : 444 ms Atrial fibrillation with rapid ventricular response Abnormal ECG When compared with ECG of 22-OCT-2022 11:49, Atrial fibrillation has replaced Sinus rhythm Vent. rate has increased BY [address] now depressed in Lateral leads T wave inversion more evident in Inferior leads Confirmed by Peña Givens ([id number]) on 11/11/2022 9:00:08 AM Referred By: [facility]ide [facility] Confirmed By:Peña Givens
--- NOTE | 2022-11-11 10:03 | Electrocardiogram Report ---
Test Reason : Blood Pressure : / mmHG Vent. Rate : 083 BPM Atrial Rate : 083 BPM P-R Int : 144 ms QRS Dur : 086 ms QT Int : 348 ms P-R-T Axes : 031 062 033 degrees QTc Int : 408 ms Normal sinus rhythm Normal ECG When compared with ECG of 09-NOV-2022 00:08, (unconfirmed) Sinus rhythm has replaced Atrial fibrillation Vent. rate has decreased BY 95 BPM Non-specific change in ST segment in Inferior leads ST no longer depressed in Lateral leads T wave inversion no longer evident in Inferior leads Confirmed by Peña Givens ([id number]) on 11/11/2022 10:02:49 AM Referred By: Aide VILLEGAS Confirmed By:Peña Givens
== END 2022-11-10 15:22 | DRG 309 ==
LOC: ED 23:42 → SUATTDRO 11-09 02:34 → 2S 11-09 02:34